=== PATIENT | male | born 1950 | race Two or more races ===

== ENCOUNTER 2023-04-12 08:54 | Outpatient (REF) | payer MEDICARE, SELFPAY | END 2023-04-12 08:55 | disposition home or self-care (01) | LOC: HO.HOSX 08:54 | PROVIDERS: Visit Provider Orthopaedic Surgery | DX: M25.512 Pain in left shoulder (principal) | CPT/HCPCS: 99212 ==

== ENCOUNTER 2023-04-12 10:53 | Outpatient (AMB) | payer MEDICARE, SELFPAY ==
[2023-04-12 11:11] VITALS: BMI 23.8
--- NOTE | 2023-04-12 11:11 | MHC.OFFVIS ---
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 Dupont for his left shoulder. Patient reports pain has been present since August 2022, he received a cortisone injection in September that provided relief until he felt a popping. His pain comes with movement of arm and is limited on ROM, states unable to reach arm behind him. His pain at times will radiate down to bicep area. The patient did see Dr. Stone Esposito at [facility]. The patient is not sure that he could tolerate shoulder replacement surgery because he is not able to take opioid pain medicines. He has been using a red light therapy which has given him fairly good relief. He has also returned to riding his bike Allergies tamsulosin [Flomax] Allergy (Unknown, Verified 04/12/23 11:13) Unknown statins Adverse Reaction (Unknown, Uncoded 05/25/19 00:00) myalgia Medication List - Last Reconciled 04/12/23 by Riaz Dupont MD alfuzosin ER 10 mg PO DAILY clonazepam 1 mg PO DAILY PRN levothyroxine (Unithroid) 100 mcg PO DAILY FORMERLY [facility], [facility] Medical History (Updated 04/12/23 @ 11:14 by SINA Fowler) History of hypothyroidism Surgical History (Updated 04/12/23 @ 11:14 by SINA Fowler) History of back surgery History of total right knee replacement Social History (Updated 04/12/23 @ 11:15 by SINA Fowler) Patient Tobacco Use Status: Never used Tobacco Current occupational status: retired Current occupation: right hand dominant Physical Exam Vital Signs: BMI result Body Mass Index 23.8 Const Other: Well-nourished well-developed very friendly male awake alert and oriented x3 in no acute distress Extrem Other: Bilateral upper extremity examination shows good capillary refill, no skin lesions noted, normal sensation light touch Left shoulder examination shows slightly decreased range of motion when compared to his right shoulder, 5/5 strength with supraspinatus testing, positive impingement signs, mild tenderness over his acromioclavicular joint, no instability Assessment & Plan Assessment & Plan (1) Left shoulder pain: Code(s): M25.512 - Pain in left shoulder Plan Mr. Evans presents with left shoulder pain due to tendinitis and degenerative joint disease. I had a lengthy discussion with the patient regarding the treatment options. At this point his symptoms are improving with use of the red light therapy. We will hold off on any no other cortisone injection. He will also continue with his range of motion exercises to prevent stiffness. He will follow up with me on an as-needed basis should his symptoms not plateau at an unacceptable level over the next few months. Feel free to call me at any time should questions regarding his orthopedic management arise. I spent 22 minutes in reviewing the patient's records and imaging studies, seeing the patient and documenting in the medical record. Orders: Orders XR shoulder LT min 2V Today M25.512 - Pain in left shoulder Coding Level of Care Code Est Pt Level 2 (14545) Diagnoses Left shoulder pain M25.512
== END 2023-04-12 11:52 | disposition home or self-care (01) ==
PROVIDERS: PCP Internal Medicine; Visit Provider Orthopaedic Surgery
DX: M25.512 Pain in left shoulder (principal)
CPT/HCPCS: 99212

== ENCOUNTER 2023-12-23 12:45 | Outpatient (AMB) | payer MEDICARE, SELFPAY ==
--- NOTE | 2023-12-23 13:06 | A.OFFVIS_ITS ---
Intake Intake Visit Reasons: BPH, peyronies Intake Note: NEW Patient presents today to established treatment for BPH & Peyronies: Meds- Finasteride & Alfuzosin Allergies to Antibiotic- No Known Allergies Blood Thinner- None Post Void Residual: 39 mL [facility] Required: No Accompanied by: Self / Same As Patient Allergies tamsulosin [Flomax] Allergy (Unknown, Verified 12/23/23 13:23) Unknown statins Adverse Reaction (Unknown, Uncoded 12/23/23 13:23) myalgia Medication List - Last Reconciled 12/23/23 by Nissa Adams MD alfuzosin ER 10 mg PO DAILY amoxicillin 2,000 mg PO ONCE PRN clonazepam 1 mg PO DAILY PRN finasteride 5 mg PO DAILY levothyroxine 100 mcg PO DAILY pentoxifylline ER 400 mg PO BID 90 days sertraline (Zoloft) 100 mg PO DAILY vitamin E (dl, acetate) 450 mg PO DAILY 90 days HPI HPI Comments History of Present Illness Details Ruben is a 73-year-old male who is here as a new patient evaluation. He complains of weak urinary stream and having to push to empty while urinating. He also complains that when he has an erection in the lower portion of the shaft there is an area that is flaccid. He does not describe a specific curvature of the penis. He is up about 2-3 times at night to urinate. He states he has been following with Urology for about 25 years. He has seen different urologists in the past. The most recent urologist is now [address] to and he has seeking a new urologist for his care. He has had several evaluations for his urinary symptoms in the past. Is currently on alfuzosin 10 mg daily and finasteride 5 mg daily. CoMorbidity - OCD, anxiety, back surgery. Urinalysis-leukocytes negative blood negative. Bladder scan PVR 39 mL. Prostate Exam: Smooth mild to moderately enlarged I have discussed further evaluation with office cystoscopy. I have discussed treatment options to include sacral neuromodulation with Test stim to be done initially to see if this may help with better voiding function. I will start him on vitamin E and pentoxifylline. Will continue PSA screening. [facility] Medical History BPH (benign prostatic hyperplasia) Psychosexual disorder Urinary retention Pain in both testicles Peyronie disease Lower urinary tract symptoms Nephrolithiasis Enlarged prostate with lower urinary tract symptoms (LUTS) History of hypothyroidism Surgical History History of total right knee replacement History of back surgery Family History Father No problems noted. Mother No problems noted. Social History Patient Tobacco Use Status: Never used Tobacco Current occupational status: retired Current occupation: right hand dominant Review of Systems Const All systems reviewed & are unremarkable except as noted in HPI and below Reports no additional complaints Eyes Reports no additional complaints ENT Reports no additional complaints Card Reports no additional complaints Resp Reports no additional complaints GI Reports no additional complaints Reports as per HPI Musc Reports no additional complaints Skin/Breast Reports system reviewed and no additional complaints, except as documented Neuro Reports no additional complaints Psych Reports no additional complaints Endo Reports no additional complaints Dante/Lymph Reports no additional complaints Aller/Immun Reports no additional complaints Physical Exam Const General: healthy appearing, no acute distress and well developed Orientation/consciousness: patient oriented x3 HEENT Head: Yes normocephalic and Yes atraumatic Eyes Conjunctivae: conjunctivae normal Neck Neck: Yes normal visual inspection Chest Chest palpation & inspection: normal inspection of the chest Resp Effort & Inspection: normal respiratory effort Cardio Jugular venous distension: no JVD GI Inspection: Yes normal to inspection Palpation (GI): Soft to palpation Other: Prostate Exam: Smooth mild to moderately enlarged Penis: normal penis Scrotum: scrotum normal Skin General skin exam: no rashes or lesions noted Neuro General: patient oriented x3 Extrem General: No pedal edema Psych Appearance: grossly normal Affect: normal affect Office Procedures Post Void Residual Post Residual Void Post Void Residual (PVR): 39 [id number] Void Residual by ultrasound Results AMB Urinalysis, Automated UA Leukoctes 0 Rashard/uL Last Edit by SINA Rachel on 12/23/23 13:39 UA Nitrite Negative Last Edit by Gunjan Cheema [facility] on 12/23/23 13:39 UA Urobilinogen 0.2 mg/dL Last Edit by Gunjan Cheema Dona on 12/23/23 13:3 9 UA Protein 15 mg/dL Last Edit by Gunjan Cheema [facility] on 12/23/23 13:39 UA pH 5.5 Last Edit by Gunjan Cheema [facility] on 12/23/23 13:39 UA Blood 0 Charles/uL Last Edit by Gunjan Cheema [facility] on 12/23/23 13:39 UA Specific [place] 1.020 Last Edit by Gunjan Cheema [facility] on 12/23/23 13: 39 UA Ketone Negative Last Edit by Gunjan Cheema Dona on 12/23/23 13:39 UA Bilirubin 0 mg/dL Last Edit by Gunjan Cheema [facility] on 12/23/23 13:39 UA Glucose 0 mg/dL Last Edit by Gunjan Cheema [facility] on 12/23/23 13:39 Results Reviewed Results Reviewed: Laboratory Last Values Urine pH (Auto) 5.5 12/23/23 13:35 Specific [place] (Auto) 1.020 12/23/23 13:35 Urine Protein (Auto) 15 mg/dL 12/23/23 13:35 Glucose (UA)(Auto) 0 mg/dL 12/23/23 13:35 Urine Ketones (Auto) Negative 12/23/23 13:35 Urine Blood (Auto) 0 Charles/uL 12/23/23 13:35 Urine Nitrite (Auto) Negative 12/23/23 13:35 Urine Bilirubin (Auto) 0 mg/dL 12/23/23 13:35 Urine Urobilinogen (Auto) 0.2 mg/dL 12/23/23 13:35 Leukocyte Esterase (Auto) 0 Rashard/uL 12/23/23 13:35 Assessment & Plan Assessment & Plan (1) Erectile dysfunction: Code(s): N52.9 - Male erectile dysfunction, unspecified (2) Voiding dysfunction: Code(s): N39.8 - Other specified disorders of urinary system (3) BPH loc w urin obs/LUTS: Code(s): N40.1 - Benign prostatic hyperplasia with lower urinary tract symptoms Plan I have discussed further evaluation with office cystoscopy. I have discussed treatment options to include sacral neuromodulation with Test stim to be done initially to see if this may help with better voiding function. I will start him on vitamin E and pentoxifylline. Will continue PSA screening. Orders: Orders AMB Post Void Residual by ultrasound Today Nissa Adams MD N39.8 - Other specified disorders of urinary system AMB Urinalysis Automated Today Nissa Adams MD Z13.9 - Encounter for screening, unspecified Medications: New pentoxifylline ER 400 mg PO BID 180 tabs 1RF 90 days Nissa Adams MD vitamin E (dl, acetate) 450 mg PO DAILY 90 caps 1RF 90 days Nissa Adams MD finasteride 5 mg PO DAILY 90 tabs 1RF Nissa Adams MD alfuzosin ER administer after the same meal each day 10 mg PO DAILY 90 tabs 1RF Nissa Adams MD Changed From amoxicillin Take four tabs (2,000 mg) one hour before any dental work 2,000 mg (4 x 500 mg) PO ONCE 20 tabs 3RF To amoxicillin Take four tabs (2,000 mg) one hour before any dental work 2,000 mg PO ONCE PRN Riaz Dupont MD Patient Instructions: The patient had an opportunity to ask questions regarding treatment plan. All questions were answered. Imaging, Laboratory studies and physical exam results were discussed and reviewed in detail. No major barriers to understanding were identified. The patient expressed understanding and agreement with the above treatment plan. The patient is aware they should contact our office by phone for worsening of their current condition or the appearance of new symptoms. Compliance is encouraged with any medications and followup testing that is ordered. It is a privilege to be allowed the opportunity to participate in the urologic care of your patient. If you have any questions or concerns regarding treatment for the above conditions please do not hesitate to contact me. The office telephone contact is [phone]. This note is constructed in part using voice recognition software. While every effort has been made to ensure accuracy wire drawer errors may have been included. Yours sincerely, Nissa Adams MD Coding Level of Care Code New Pt Level 4 (17036) Diagnoses Erectile dysfunction N52.9 Voiding dysfunction N39.8 BPH loc w urin obs/LUTS N40.1 CPT Codes Post Residual Void - PVR CPT Code: 75188-Farz Void Residual by ultrasound ([id number])
== END 2023-12-23 13:59 | disposition home or self-care (01) ==
PROVIDERS: PCP Internal Medicine; Visit Provider Urology
DX: N52.9 Male erectile dysfunction, unspecified (principal); N39.8 Other specified disorders of urinary system; N40.1 Benign prostatic hyperplasia with lower urinary tract symptoms; Z13.9 Encounter for screening, unspecified
CPT/HCPCS: 99204

== ENCOUNTER → 2023-12-23 12:45 | Outpatient (BNVA) | payer MEDICARE, SELFPAY | PROVIDERS: PCP Internal Medicine; Visit Provider Urology | DX: N40.1 Benign prostatic hyperplasia with lower urinary tract symptoms (principal); R39.12 Poor urinary stream; N52.9 Male erectile dysfunction, unspecified; N39.8 Other specified disorders of urinary system | CPT/HCPCS: 51798; 81003; 99202 ==

== ENCOUNTER 2024-01-30 13:25 | Outpatient (AMB) | payer MEDICARE, SELFPAY ==
--- NOTE | 2024-01-30 13:28 | A.OFFVIS_ITS ---
Intake Visit Reasons: cysto Intake Note: Patient presents today for a CYSTOSCOPY Procedure: Meds: None Allergies to Antibiotic: No Known Allergies Blood Thinner: None Urinalysis test clear for Cysto? Disposable Uro-G HD Cystoscope Cannula: Lot: [id number] Exp: 09/13/2026 Order Schedule Clerk Required: No Accompanied by: Self / Same As Patient Allergies tamsulosin [Flomax] Allergy (Unknown, Verified 01/30/24 13:28) Unknown statins Adverse Reaction (Unknown, Uncoded 01/30/24 13:28) myalgia Medication List - Last Reconciled 01/30/24 by Nissa Adams MD amoxicillin 2,000 mg PO ONCE PRN clonazepam 1 mg PO DAILY PRN finasteride 5 mg PO DAILY levothyroxine 100 mcg PO DAILY pentoxifylline ER 400 mg PO BID 90 days sertraline (Zoloft) 100 mg PO DAILY silodosin (Rapaflo) 8 mg PO DAILY vitamin E (dl, acetate) 450 mg PO DAILY 90 days HPI Comments Details: 01/30/2024--Ruben is here for office cystoscopy. He was initially evaluated on 12/23/23 with complaints of weak urinary stream and hesitancy/straining, he is on alfuzosin and Proscar. He also had symptoms of urgency, other treatment options including sacral neuromodulation was discussed. He states that he has had urodynamics in the past and was unable to urinate with the catheter in place. He described curvature of penis. I prescribed vitamin E and pentoxifylline. Cystoscopy findings: [id number] trabeculations, evidence of prior bladder biopsy, regrowth of the prostate which is obstructive. I discussed treatment options to remove prostate tissue including GreenLight laser TURP may improve urinary symptoms of straining. We will trial Rapaflo to replace alfuzosin. The patient states he had a reaction to tamsulosin in the past with side effects of throat swelling. Review of chart: 12/23/2023--Ruben is a 73-year-old male who is here as a new patient evaluation. He complains of weak urinary stream and having to push to empty while urinating. He also complains that when he has an erection in the lower portion of the shaft there is an area that is flaccid. He does not describe a specific curvature of the penis. He is up about 2-3 times at night to urinate. He states he has been following with Urology for about 25 years. He has seen different urologists in the past. The most recent urologist is now [address] to and he has seeking a new urologist for his care. He has had several evaluations for his urinary symptoms in the past. Is currently on alfuzosin 10 mg daily and finasteride 5 mg daily. CoMorbidity - OCD, anxiety, back surgery. Urinalysis-leukocytes negative blood negative. Bladder scan PVR 39 mL. Prostate Exam: Smooth mild to moderately enlarged I have discussed further evaluation with office cystoscopy. I have discussed treatment options to include sacral neuromodulation with Test stim to be done initially to see if this may help with better voiding function. I will start him on vitamin E and pentoxifylline. Will continue PSA screening. [facility] Medical History (Updated 01/30/24 @ 13:59 by Nissa Adams MD) BPH (benign prostatic hyperplasia) Psychosexual disorder Urinary retention Pain in both testicles Peyronie disease Lower urinary tract symptoms Nephrolithiasis Enlarged prostate with lower urinary tract symptoms (LUTS) History of hypothyroidism Surgical History History of total right knee replacement History of back surgery Family History Father No problems noted. Mother No problems noted. Social History Patient Tobacco Use Status: Never used Tobacco Current occupational status: retired Current occupation: right hand dominant Review of Systems Const All systems reviewed & are unremarkable except as noted in HPI and below Reports no additional complaints Eyes Reports no additional complaints ENT Reports no additional complaints Card Reports no additional complaints Resp Reports no additional complaints GI Reports no additional complaints Reports as per HPI Musc Reports no additional complaints Skin/Breast Reports system reviewed and no additional complaints, except as documented Neuro Reports no additional complaints Psych Reports no additional complaints Endo Reports no additional complaints Dante/Lymph Reports no additional complaints Aller/Immun Reports no additional complaints Office Procedures Cystoscopy Consent Discussed risk and benefit or proposed procedure with the patient. Information consent for procedure given to the patient. Discussed technical aspects, risks, benefits and alternatives in full. Addressed all of the patient's questions and concerns regarding the procedure. The patient demonstrated knowledge and understanding. They wish to proceed with this procedure. Preparation The patient was prepped in the usual manner. A cryogenics repairer was present and in the room. Genitalia was prepped with betadine solution in a sterile manner. Lidocaine Jelly 2% was placed into the urethra and 16Fr flexible Olympus cystoscope was inserted into the meatus after adequate lubrication. Procedure Time out per protocol performed. Bladder Inspection Bladder Inspection: The bladder was inspected in its entirety with utilization retroflexion displaying: Tumor(s): None visualized Trabeculation: Mild to moderate Mucosal Erthema: NA, scar tissue consistent with prior bladder biopsy. Orifices: normal shape and position Urethra: normal Cystoscopy findings: prostatic urethra regrowth of prostate tissue meds obstru ctive, bulbous urethra, no suspicious bladder lesions visualized [id number] DISPOSABLE SCOPE URO-G FLEXIBLE SCOPE Procedure code (CPT) selection complete Office Meds lidocaine HCl 2 % mucosal jelly in applicator Performing Provider: Nissa Adams MD [facility] Administered by: Nissa Adams MD on 01/30/24 13:58 Dose Route Admin Location Dispensed Lot Number Expiration Date ND Technical Support Intern 10 mL intra-urethral 20 mL naproxen 500 mg tablet Performing Provider: Nissa Adams MD Performing Location: [facility] Administered by: Nissa Adams MD on 01/30/24 13:58 Dose Route Admin Location Dispensed Lot Number Expiration Date ND Technical Support Intern 500 mg PO 1 tab ciprofloxacin HCl 500 mg tablet Performing Provider: Nissa Adams MD Performing Location: [facility] Administered by: Nissa Adams MD on 01/30/24 13:58 Dose Route Admin Location Dispensed Lot Number Expiration Date NDC Technical Support Intern 500 mg PO 1 tab Results AMB Urinalysis, Automated UA Leukoctes 0 Rashard/uL Last Edit by SINA Rachel on 01/30/24 14:02 UA Nitrite Negative Last Edit by Gunjan Cheema Dona on 01/30/24 14:02 UA Urobilinogen 0.2 mg/dL Last Edit by Gunjan Cheema Dona on 01/30/24 14:0 2 UA Protein 15 mg/dL Last Edit by Gunjan Cheema Dona on 01/30/24 14:02 UA pH 6.0 Last Edit by Gunjan Cheema Dona on 01/30/24 14:02 UA Blood 0 Charles/uL Last Edit by Gunjan Cheema Dona on 01/30/24 14:02 UA Specific [place] 1.015 Last Edit by Gunjan Cheema Dona on 01/30/24 14: 02 UA Ketone Negative Last Edit by Gunjan Cheema Dona on 01/30/24 14:02 UA Bilirubin 0 mg/dL Last Edit by Gunjan Cheema Dona on 01/30/24 14:02 UA Glucose 0 mg/dL Last Edit by Gunjan Cheema Dona on 01/30/24 14:02 Results Reviewed Results Reviewed: Laboratory Last Values Urine pH (Auto) 6.0 01/30/24 13:44 Specific [place] (Auto) 1.015 01/30/24 13:44 Urine Protein (Auto) 15 mg/dL 01/30/24 13:44 Glucose (UA)(Auto) 0 mg/dL 01/30/24 13:44 Urine Ketones (Auto) Negative 01/30/24 13:44 Urine Blood (Auto) 0 Charles/uL 01/30/24 13:44 Urine Nitrite (Auto) Negative 01/30/24 13:44 Urine Bilirubin (Auto) 0 mg/dL 01/30/24 13:44 Urine Urobilinogen (Auto) 0.2 mg/dL 01/30/24 13:44 Leukocyte Esterase (Auto) 0 Rashard/uL 01/30/24 13:44 Assessment & Plan Assessment & Plan (1) Erectile dysfunction: Code(s): N52.9 - Male erectile dysfunction, unspecified Category: Medical (2) Voiding dysfunction: Code(s): N39.8 - Other specified disorders of urinary system Category: Medical (3) BPH loc w urin obs/LUTS: Code(s): N40.1 - Benign prostatic hyperplasia with lower urinary tract symptoms Category: Medical (4) Peyronie disease: Code(s): N48.6 - Induration penis plastica Category: Medical Plan Continue vitamin E and pentoxifylline. Trial of Rapaflo to replace alfuzosin, patient has side effects to tamsulosin PSA screening. Follow-up in 3-4 months Orders: Orders AMB Urinalysis Automated Today Z13.9 - Encounter for screening, unspecified AMB Cystoscopy Today N40.1 - Benign prostatic hyperplasia with lower urinary tract symptoms Medications: New silodosin (Rapaflo) must administer with a meal/food 8 mg PO DAILY 30 caps 1RF Patient Instructions: The patient had an opportunity to ask questions regarding treatment plan. The patient expressed understanding and agreement with the above treatment plan. The patient is aware they should contact our office by phone for worsening of their current condition or the appearance of new symptoms. Compliance is encouraged with any medications and followup testing that is ordered. It is a privilege to be allowed the opportunity to participate in the urologic care of your patient. If you have any questions or concerns regarding treatment for the above conditions please do not hesitate to contact me. The office telephone contact is [phone]. This note is constructed in part using voice recognition software. While every effort has been made to ensure accuracy edger liner errors may have been included. Yours sincerely, Nissa Adams MD Coding Level of Care Code Est Pt Level 4 (27065) Diagnoses Erectile dysfunction N52.9 Voiding dysfunction N39.8 BPH loc w urin obs/LUTS N40.1 Peyronie disease N48.6 CPT Codes Cystoscopy - CPT: 91123-Ttiovatnrf ([id number])
== END 2024-01-30 14:25 | disposition home or self-care (01) ==
PROVIDERS: PCP Internal Medicine; Visit Provider Urology
DX: N40.1 Benign prostatic hyperplasia with lower urinary tract symptoms (principal); N39.8 Other specified disorders of urinary system; N52.9 Male erectile dysfunction, unspecified; N48.6 Induration penis plastica; Z13.9 Encounter for screening, unspecified
CPT/HCPCS: 52000; 99214

== ENCOUNTER → 2024-01-30 13:25 | Outpatient (BNVA) | payer MEDICARE, SELFPAY | PROVIDERS: PCP Internal Medicine; Visit Provider Urology | DX: N39.8 Other specified disorders of urinary system (principal); N40.1 Benign prostatic hyperplasia with lower urinary tract symptoms; N13.8 Other obstructive and reflux uropathy; N48.6 Induration penis plastica; N52.9 Male erectile dysfunction, unspecified | CPT/HCPCS: 52000; 81003; 99212 ==

== ENCOUNTER 2024-05-02 12:51 | Outpatient (AMB) | payer MEDICARE, SELFPAY ==
--- NOTE | 2024-05-02 13:03 | A.OFFVIS_ITS ---
Intake Visit Reasons: 3m/PSA Intake Note: Pt presents to the office today for a 3 month follow up/PSA. PVR:37mL Allergies tamsulosin [Flomax] Allergy (Unknown, Verified 05/02/24 13:05) Unknown statins Adverse Reaction (Unknown, Uncoded 05/02/24 13:05) myalgia HPI Comments Details: 05/02/24--Ruben is here for follow-up. I have reviewed PSA results, 03/14/24--1.1 ng/mL. The patient is prescribed pentoxifylline and is taking arjw-jwc-szjyhhs vitamin-E for Peyronie's. He continues to take the alfuzosin and finasteride. The Rapaflo was not covered by his insurance. Bladder scan PVR is 57 mL. Will continue medications and monitor PSA. Follow-up in 6 months. Review of chart: 01/30/2024--Ruben is here for office cystoscopy. He was initially evaluated on 12/23/23 with complaints of weak urinary stream and hesitancy/straining, he is on alfuzosin and Proscar. He also had symptoms of urgency, other treatment options including sacral neuromodulation was discussed. He states that he has had urodynamics in the past and was unable to urinate with the catheter in place. He described curvature of penis. I prescribed vitamin E and pentoxifylline. Cystoscopy findings: Djcr-pe-lutkqdni trabeculations, evidence of prior bladder biopsy, regrowth of the prostate which is obstructive. I discussed treatment options to remove prostate tissue including GreenLight laser TURP may improve urinary symptoms of straining. We will trial Rapaflo to replace alfuzosin. The patient states he had a reaction to tamsulosin in the past with side effects of throat swelling. 12/23/2023--Ruben is a 73-year-old male who is here as a new patient evaluation. He complains of weak urinary stream and having to push to empty while urinating. He also complains that when he has an erection in the lower portion of the shaft there is an area that is flaccid. He does not describe a specific curvature of the penis. He is up about 2-3 times at night to urinate. He states he has been following with Urology for about 25 years. He has seen different urologists in the past. The most recent urologist is now [address] to and he has seeking a new urologist for his care. He has had several evaluations for his urinary symptoms in the past. Is currently on alfuzosin 10 mg daily and finasteride 5 mg daily. CoMorbidity - OCD, anxiety, back surgery. Urinalysis-leukocytes negative blood negative. Bladder scan PVR 39 mL. Prostate Exam: Smooth mild to moderately enlarged I have discussed further evaluation with office cystoscopy. I have discussed treatment options to include sacral neuromodulation with Test stim to be done initially to see if this may help with better voiding function. I will start him on vitamin E and pentoxifylline. Will continue PSA screening. [facility] Medical History BPH (benign prostatic hyperplasia) Psychosexual disorder Urinary retention Pain in both testicles Peyronie disease Lower urinary tract symptoms Nephrolithiasis Enlarged prostate with lower urinary tract symptoms (LUTS) History of hypothyroidism Surgical History History of total right knee replacement History of back surgery Family History Father No problems noted. Mother No problems noted. Social History Patient Tobacco Use Status: Never used Tobacco Current occupational status: retired Current occupation: right hand dominant Review of Systems Const All systems reviewed & are unremarkable except as noted in HPI and below Reports no additional complaints Eyes Reports no additional complaints ENT Reports no additional complaints Card Reports no additional complaints Resp Reports no additional complaints GI Reports no additional complaints Reports as per HPI Musc Reports no additional complaints Skin/Breast Reports system reviewed and no additional complaints, except as documented Neuro Reports no additional complaints Psych Reports no additional complaints Endo Reports no additional complaints Dante/Lymph Reports no additional complaints Aller/Immun Reports no additional complaints Office Procedures Post Void Residual Post Residual Void Post Void Residual (PVR): 37 [id number] Void Residual by ultrasound Results AMB Urinalysis, Automated UA Leukoctes 0 Rashard/uL Last Edit by Ailyn Astudillo CMA on 05/02/24 13:14 UA Nitrite Negative Last Edit by Ailyn Astudillo CMA on 05/02/24 13:14 UA Urobilinogen 0.2 mg/dL Last Edit by Ailyn Astudillo CMA on 05/02/24 13:14 UA Protein 15 mg/dL Last Edit by Ailyn Astudillo CMA on 05/02/24 13:14 UA pH 6.0 Last Edit by Ailyn Astudillo CMA on 05/02/24 13:14 UA Blood 0 Charles/uL Last Edit by Ailyn Astudillo CMA on 05/02/24 13:14 UA Specific Merna 1.020 Last Edit by Ailyn Astudillo CMA on 05/02/24 13:14 UA Ketone Negative Last Edit by Ailyn Astudillo CMA on 05/02/24 13:14 UA Bilirubin 0 mg/dL Last Edit by Ailyn Astudillo CMA on 05/02/24 13:14 UA Glucose 0 mg/dL Last Edit by Ailyn Astudillo CMA on 05/02/24 13:14 Results Reviewed Results Reviewed: Laboratory Last Values Urine pH (Auto) 6.0 05/02/24 13:08 Specific Merna (Auto) 1.020 05/02/24 13:08 Urine Protein (Auto) 15 mg/dL 05/02/24 13:08 Glucose (UA)(Auto) 0 mg/dL 05/02/24 13:08 Urine Ketones (Auto) Negative 05/02/24 13:08 Urine Blood (Auto) 0 Charles/uL 05/02/24 13:08 Urine Nitrite (Auto) Negative 05/02/24 13:08 Urine Bilirubin (Auto) 0 mg/dL 05/02/24 13:08 Urine Urobilinogen (Auto) 0.2 mg/dL 05/02/24 13:08 Leukocyte Esterase (Auto) 0 Rashard/uL 05/02/24 13:08 Assessment & Plan Assessment & Plan (1) Erectile dysfunction: Code(s): N52.9 - Male erectile dysfunction, unspecified Category: Medical (2) Voiding dysfunction: Code(s): N39.8 - Other specified disorders of urinary system Category: Medical (3) BPH loc w urin obs/LUTS: Code(s): N40.1 - Benign prostatic hyperplasia with lower urinary tract symptoms Category: Medical (4) Peyronie disease: Code(s): N48.6 - Induration penis plastica Category: Medical Plan The patient is prescribed pentoxifylline and is taking xdhz-xse-bhihbit vitamin-E for Peyronie's. He continues to take the alfuzosin and finasteride. The Rapaflo was not covered by his insurance. Bladder scan PVR is 57 mL. Will continue medications and monitor PSA. Follow-up in 6 months. Orders: Orders AMB Post Void Residual by ultrasound Today N39.8 - Other specified disorders of urinary system PSA,Total (Free>4and<10) 5 Months N40.1 - Benign prostatic hyperplasia with lower urinary tract symptoms AMB Urinalysis Automated Today N39.8 - Other specified disorders of urinary system Coding Level of Care Code Est Pt Level 4 (97643) Diagnoses Erectile dysfunction N52.9 Voiding dysfunction N39.8 BPH loc w urin obs/LUTS N40.1 Peyronie disease N48.6 CPT Codes Post Residual Void - PVR CPT Code: 23052-Rjtw Void Residual by ultrasound ([id number])
== END 2024-05-02 13:44 | disposition home or self-care (01) ==
PROVIDERS: PCP Internal Medicine; Visit Provider Urology
DX: N52.9 Male erectile dysfunction, unspecified (principal); N39.8 Other specified disorders of urinary system; N40.1 Benign prostatic hyperplasia with lower urinary tract symptoms; N48.6 Induration penis plastica
CPT/HCPCS: 99214

== ENCOUNTER → 2024-05-02 12:51 | Outpatient (BNVA) | payer MEDICARE, SELFPAY | PROVIDERS: PCP Internal Medicine; Visit Provider Urology | DX: N40.1 Benign prostatic hyperplasia with lower urinary tract symptoms (principal); N13.8 Other obstructive and reflux uropathy; N48.6 Induration penis plastica; N52.9 Male erectile dysfunction, unspecified; N39.8 Other specified disorders of urinary system | CPT/HCPCS: 51798; 81003; 99212 ==

== ENCOUNTER 2024-11-20 12:28 | Outpatient (AMB) | payer MEDICARE, SELFPAY ==
[2024-11-20 12:48] VITALS: BMI 23.8
--- NOTE | 2024-11-20 12:48 | A.OFFVIS_ITS ---
Vital Signs 11/20/24 12:48 11/20/24 13:05 Height 5 ft 5 in 5 ft 5 in Weight 143 lb 143 lb BMI 23.8 23.8 Intake Visit Reasons: Bilateral Knee Pain, Right hip pain Intake Note: Ruben is a 74 year old male who presents with complaints of intermittent discomfort along the lateral aspect of his right hip and right knee after falling on the ice. He also reports intermittent discomfort in his left knee. He did undergo right total knee replacement surgery several years ago. He has had cortisone injections given into his left knee which gave him minimal relief. He has also had viscosupplementation injections which gave him fairly good relief. He wishes to hold off on left total knee replacement surgery for as long as possible. Has done physical therapy exercises which aggravated his pain. He has also tried Tylenol and anti-inflammatory medicines which gave him minimal relief. At this point his left knee pain is interfering with his activities of daily living and his ability to sleep well through the night. Allergies tamsulosin [Flomax] Allergy (Unknown, Verified 05/02/24 13:05) Unknown statins Adverse Reaction (Unknown, Uncoded 05/02/24 13:05) myalgia Medication List - Last Reconciled 11/20/24 by Riaz Dupont MD alfuzosin ER 10 mg PO DAILY amoxicillin 2,000 mg PO ONCE PRN clonazepam 1 mg PO DAILY PRN finasteride 5 mg PO DAILY levothyroxine 100 mcg PO DAILY methylprednisolone (Medrol (Yoan)) PO PER PKG DIR pentoxifylline ER 400 mg PO BID 90 days vitamin E (dl, acetate) 450 mg PO DAILY 90 days [facility] Medical History BPH (benign prostatic hyperplasia) Psychosexual disorder Urinary retention Pain in both testicles Peyronie disease Lower urinary tract symptoms Nephrolithiasis Enlarged prostate with lower urinary tract symptoms (LUTS) History of hypothyroidism Surgical History History of total right knee replacement History of back surgery Family History Father No problems noted. Mother No problems noted. Social History Patient Tobacco Use Status: Never used Tobacco Current occupational status: retired Current occupation: right hand dominant Physical Exam Vital Signs: BMI result Body Mass Index 23.8 Const Other: Well-nourished well-developed very friendly male awake alert and oriented x3 in no acute distress Extrem Other: Bilateral lower extremity examination shows good capillary refill, no skin lesions noted, normal sensation light touch Right hip examination shows full range of motion when compared to his left hip, tenderness over his bursa, no overlying skin lesions Right knee examination shows that the surgical incision is well healed, no erythema, full active extension and flexion to 120 degrees, his patella tracks well Left knee examination shows a minimal effusion, palpable crepitus with range of motion, pain with range of motion, no instability Results Reviewed Results Reviewed: X-rays of the patient's right hip show mild diffuse joint space narrowing, no acute bony abnormalities X-rays of the patient's right knee show a total knee arthroplasty in good position with no signs of loosening, no acute bony abnormalities X-rays of the patient's left knee show moderate joint space narrowing, subchondral sclerosis, no acute bony abnormalities Assessment & Plan Assessment & Plan (1) Right hip pain: Code(s): M25.551 - Pain in right hip Category: Medical (2) Osteoarthritis of left knee: Code(s): M17.12 - Unilateral primary osteoarthritis, left knee Category: Medical Plan Mr. Evans presents with left knee pain due to osteoarthritis as well as right hip and knee discomfort most likely due to iliotibial band syndrome. I had a lengthy discussion with the patient regarding the treatment options. He wishes to hold off on left total knee replacement surgery for as long as possible. I agree with this plan. He has not gotten good relief from cortisone injections in the past. Thus, I will see whether or not his insurance company will cover a viscosupplementation injection. I will see him back once the injection is available. Feel free to call me at any time should questions regarding his orthopedic management arise. I spent 21 minutes in reviewing the patient's records and imaging studies, seeing the patient and documenting in the medical record. Orders: Orders XR knee LT 3V Today M25.562 - Pain in left knee XR knee RT 3V Today M25.561 - Pain in right knee XR hip RT min 2V Today M25.551 - Pain in right hip Medications: New methylprednisolone (Medrol (Yoan)) PO PER PKG DIR 21 ea 0RF Coding Level of Care Code Est Pt Level 3 (53639) Complex EM visit Add On G2211 Diagnoses Right hip pain M25.551 Osteoarthritis of left knee M17.12
[2024-11-20 13:05] VITALS: BMI 23.8
--- OUTSIDE RECORDS SUMMARY | 2024-11-20 15:02 | XMS_ITS | Data Portability ---
Author Organization [place] [facility] [place] Address [address] [place] [address] Care Team Providers Care Piano Tuner Name Role Phone DESIREE MILLER Primary Care Provider [phone] Assessment Encounter Date Assessment Date Assessment LastModified by Organization Details LastModified Time 12/07/2022 12/07/2022 Mr. Evans presen ts with left shoulder pain due to impingement syndrome, acromioclavicular joint arthritis and rotator cuff tendinosis versus a small tear. I had a lengthy discussion with the patient regarding the treatment options. At this point the patient's symptoms are tolerable to him. Activity modifications were discussed at length with the patient. He will follow-up with me on an as-needed basis should his symptoms worsen in any way. jamila Not available 12/07/2022 15:18:11 Plan of Treatment Reminders Order Date Submit Date Provider Last Modified By Organization Details Last Modified Time Details Appointments None record ed. Lab None record ed. Referral None record ed. Procedures None record ed. Surgeries None record ed. Imaging None record ed. Medication Orders None record ed. Patient TargetsNo targets recorded. Patient InstructionsNo instructions recorded. Reason for Referral None Reported. Problems Name Problem SNOMED Code Status Onset Date Resolution Date Notes Provider Name and Address Organization Details Recorded Time Impingement syndrome of left shoulder region 5823836087809 04 Active 2022 Riaz Dupont MD [address] [facility] [address], [place], [address] , [place] [facility] 15:16:39 Problem Notes None recorded. Procedures Surgical History Date Name Laterality Status Provider Name and Address Organization Details Recorded Time Total knee arthroplasty completed Yas Fam [facility] 12/07/2022 13:03:05 Shoulder Surgery completed Yasheather Fam [facility] 12/07/2022 13:03:11 Hernia Repair completed Yas Fam [facility] 12/07/2022 13:03:17 cholecystectomy completed Yas Fam [facility] 12/07/2022 13:03:25 operation on prostate completed [facility] 12/07/2022 13:03:43 v[facility]ctomy completed [facility] [place] [facility] 12/07/2022 13:03:53 Imaging Results None recorded. Procedure Notes None recorded. Medical Equipment None Reported. Allergies Allergen ID Allergen Name Allergen Category Reaction Reaction Severity Criticality Documentation Date Start Date Code Code System Note Provider Name and Address Organization Details Recorded Time 1006 Flomax medicatio n Not available Not available Not available 12/07/2022 29012 3 RxNorm Yas Fam null, [place] [facility] 13:01:45 1007 amoxicill in medicatio n Not available Not available Not available 12/07/2022 723 RxNorm Yas Fam null, [place] [facility] 13:01:53 1008 Augmentin medicatio n Not available Not available Not available 12/07/2022 27942 2 RxNorm Yas Fam null, [place] [facility] 13:01:59 1009 budesonid e medicatio n Not available Not available Not available 12/07/2022 42045 RxNorm Yas Fam null, [place] [facility] 13:02:07 1010 erythromy max medicatio n Not available Not available Not available 12/07/2022 4053 RxNorm Yas Fam null, [place] [facility] 13:02:15 1011 Non-stero idal anti-infl ammatory agent (product) medicatio n Not available Not available Not available 12/07/2022 67097 005 SNOMED Yas Sarwat null, [place] [facility] 13:02:21 1012 salicylat e medicatio n Not available Not available Not available 12/07/2022 9522 RxNorm Yas Fam null, [place] [facility] 13:02:33 1013 Substance with sulfonami de structure and antibacte rial mechanism of action (substanc e) medicatio n Not available Not available Not available 12/07/2022 94395 8003 SNOMED Yas Fam null, [place] [facility] 13:02:39 Medications Name Sig Start Date Stop Date Status Note LastModified by Organization Details LastModified Time carisoprodo l 350 mg tablet TAKE 1 TABLET BY MOUTH EVERY 12 HOURS NEEDED FOR SPASMS active Not Available Not Available No t Available prednisone 10 mg tablet TAKE 1 TABLET BY MOUTH FOUR TIMES DAILY FOR 3 DAYS THEN TAKE 1 TABLET BY MOUTH TWICE DAILY FOR 1 DAY THEN STOP. TAKE WITH FOOD 01/10 completed Not Available Not Available Not Available clindamycin HCl 300 mg capsule TAKE 2 CAPSULES BY MOUTH 1 HOUR BEFORE DENTAL APPOINTME NT active Not Available Not Available No t Available senna 8.6 mg tablet TAKE 2 TABLETS BY MOUTH DAILY active Not Available Not Available No t Available clonazepam 1 mg tablet TAKE 1 TABLET BY MOUTH THREE TIMES DAILY NEEDED active Not Available Not Available No t Available hydromorpho ne 2 mg tablet active Not Available Not Available Not Available Unithroid 100 mcg tablet TAKE 1 TABLET BY MOUTH EVERY DAY IN THE MORNING ON AN EMPTY STOMACH active Not Available Not Available No t Available methylpredn isolone 4 mg tablets in a dose pack FOLLOW PACKAGE DIRECTION S 01/10 completed Not Available Not Available Not Available alfuzosin ER 10 mg tablet,exte nded release 24 hr TAKE 1 TABLET BY MOUTH EVERY DAY active Not Available Not Available No t Available lidocaine 5 % topical ointment APPLY TOPICALLY TO THE AFFECTED AREA 3 TO 4 TIMES PER DAY NEEDED FOR PAIN active Not Available Not Available No t Available BinaxNOW COVID-19 Ag Self Test kit TEST DIRECTED TODAY 01/10 completed Not Available Not Available Not Available Vitals Date Recorded Body height Body mass index (BMI) Body weight Provider Name and Address Organization Details Last Updated DateTime 12/07/2022 165.1 cm 23.3 kg/m2 43360.[address] [place] [facility] 12/07/2022 13:07:57 Social History None recorded. Functional Status None recorded. Mental Status None recorded. Family History Nothing Reported. Medical History Condition Response Heart Disease Y Thyroid Problems Y Past Encounters Encounter ID Performer Location Encounter Start Date Encounter Closed Date Diagnosis/Indication Diagnosis SNOMED-CT Code Diagnosis ICD10 Code Diagnosis Note [id number] MD ARETHA Baptiste [facility] [address] [facility] [address] [place] [address] 12/07/2022 12:57:12 12/07/2022 13:26:06 Impingement syndrome of left shoulder region [id number] 19728 M75.42 [id number] MD ARETHA Singh [facility] [address] [facility] [address] [place] [address] 01/10/2023 12:54:42 01/12/2023 09:49:35 Aftercare [id number] Z51.89 Health Concerns Section Related Observation LastModified by Organization Detai ls LastModified Time None Recorded Concern Status LastModified by Organization Details LastModified Time None Recorded Advance Directives Directive None Recorded Payers Encounter Date Sequence Insurance Name Policy Number Policy Curry Covered Member ID Curry Member ID Guarantor Name 12/07/2022 2 [place] [id number] Ruben Evans [id number] Ruben Evans 12/07/2022 1 [place] Ruben Evans [id number] Ruben Evans 01/10/2023 2 [place] [id number] Ruben Evans [id number] Ruben Evans 01/10/2023 1 [place] Ruben Evans [id number] Ruben Evans Notes Date Note Type Note Provider Name and Address Organization Details Recorded Time 12/07/2022 text/html The patient presents with complaints of intermittent pain along the lateral aspect of his left shoulder. He did undergo left shoulder arthroscopic surgery on October 22, 2019. He got fairly good relief from that surgery initially. He describes his discomfort as achy in nature. He reports mild weakness when lifting his hand above shoulder height. Riaz Dupont MD [address] [facility] [address], [place], [address], [place] [facility] 12/07/2022 15:18:23 01/10/2023 text/html Patient came in with knee pain. However he has seen Dr. Archer for possible revision knee replacement. He recently was seen in [place] by Dr. Ahuja within the last few weeks for which she had x-rays performed his knees. He is here for reevaluation of his knees however he does not want to have x-rays performed at this visit today. He did not bring his imaging studies with him. And is refusing any further imaging without knowing if he is going to get a bill. The patient subsequently left the office. He also stated to staff that he is not sure if he is going to follow Dr. Dupont versus go to Dr. Ahuja versus see Dr. Archer or stay within our practice. All the above-noted information was obtained from Liz Rushing. AJIT WANG PA-C [address] [place] [address] [address], [place], [address], [place] [facility] 01/12/2023 09:49:34
--- OUTSIDE RECORDS SUMMARY | 2024-11-20 15:02 | XMS_ITS | Clinical Summary ---
Author Organization [facility] Address [address] [place] [address] Care Team Providers Care Mold Polisher Name Role Phone Pastor Kate MD Primary Care Provider [phone] Allergies Active Allergy Reactions Criticality Noted Date Comments Amoxicillin Other (See Comments) Medium 12/22/2016 GI upset Amoxicillin-Pot Clavulanate 01/15/2016 Budesonide 07/28/2016 Erythromycin 01/15/2016 Tamsulosin High 01/15/2016 Nsaids 01/15/2016 Salicylates 01/15/2016 Sulfa Antibiotics 05/08/2014 Other reaction(s): GI Upset Medications Medication Sig Dispensed Refills Start Date End Date Status finasteride (PROSCAR) 5 MG tablet 0 12/06/2015 Active SYNTHROID 88 MCG tablet 0 11/07/2015 Active aspirin 81 MG chewable tablet Chew 81 mg by mouth daily. 0 Active cycloSPORINE (RESTASIS) 0.05 % ophthalmic emulsion 1 drop 2 (two) times a day. 0 Active alfuzosin (UROXATRAL) 10 MG 24 hr tablet Take 1 tablet (10 mg total) by mouth daily. 90 tablet 3 05/28/2016 Active baclofen (LIORESAL) 10 MG tablet 0 02/02/2017 Active clonazePAM (KLONOPIN) 1 MG tablet as needed. 0 03/19/2014 Active sildenafil (VIAGRA) 100 MG tablet 1/2 to 1 tab one hour before activity as directed, max 1 tab per day 0 03/08/2017 Active ACETAMINOPHEN EXTRA STRENGTH 500 MG tablet 0 08/23/2019 Active HYDROmorphone (DILAUDID) 2 MG tablet Take 1 to 2 tabs every 4 hours as needed for pain 60 tablet 0 10/16/2019 Active amitriptyline (ELAVIL) 10 MG tablet TK 1 T PO QD HS 0 11/18/2019 Active carisoprodol (SOMA) 350 MG tablet TK 1 T PO TID PRF MUSCLE SPASM 0 11/24/2019 Active LEVOXYL 100 MCG tablet TK 1 T PO QD 0 11/22/2019 Active nortriptyline (PAMELOR) 10 MG capsule TAKE 1 CAPSULE BY MOUTH EVERY DAY AT BEDTIME FOR 4 DAYS THEN 2 CAPSULES AT BEDTIME FOR 4 DAYS THEN 1 CAPSULE IN THE MORNING AND 2 AT BEDTIME 0 04/30/2020 Active Turmeric 500 MG TABS Take by mouth. 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 10/09/2019 Arthritis of knee, left 07/03/2019 Chronic left shoulder pain 03/07/2019 Shoulder impingement syndrome, left 03/06/2019 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 01/31/2019 Osteoarthritis of carpometacarpal (CMC) joint of left thumb 01/31/2019 Volar laxity MCP joint right thumb 01/31/2019 Volar laxity MCP joint left thumb 01/31/2019 Primary osteoarthritis of left knee 12/12/2018 Chronic pain of both knees 12/12/2018 Knee stiffness, right 09/01/2018 Postop check 06/09/2018 BPH (benign prostatic hyperplasia) 01/15/2016 Kidney stone 01/15/2016 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 Family History Medical History Relation Name Comments Cancer Mother Diabetes Paternal Grandfather Heart disease Paternal Uncle Relation Name Status Comments Mother Paternal Grandfather Paternal Uncle Social History Tobacco Use Types Packs/Day Years Used Date Smoking Tobacco: Former Cigarettes Q uit: 01/15/1976 Smokeless Tobacco: Never Comments:off and on since 77 Alcohol Use Standard Drinks/Week Comments No 0 (1 standard drink = 0.6 oz pur e alcohol) Sex and Gender Information Value Date Recorded Sex Assigned at Not on file Gender Identity Not on file Sexual Orientation Not on file Job Start Date Occupation Industry Not on file Not on file Not on file Last Filed Vital Signs Vital Sign Reading Time Taken Comments Blood Pressure 127/83 01/15/2016 11:36 AM EDT Pulse - - Temperature - - Respiratory Rate - - Oxygen Saturation - - Inhaled Oxygen Concentration - - Weight 63 kg (139 lb) 04/30/2022 2:07 PM EDT Height 165.1 cm (5' 5 ) 04/30/2022 2:07 PM EDT Body Mass Index 23.13 04/30/2022 2:07 PM EDT Plan of Treatment Health Maintenance Due Date Last Done Comments Hepatitis C Screening 1950 Depression Screening 1963 Preventative Health Evaluation 1969 DTap / Tdap / Td (1 - Tdap) 1970 Colon Cancer Screening (Colonoscopy) 1996 Shingrix-Zoster Vaccine (1 of 2) 2001 Fall Risk Assessment 2016 COVID-19 Vaccine ( season) 2024 08/17/2021, 11/15/2020 Influenza Vaccine (#1) 2024 , 11/01/2019, 06/14/2017, Additional history exists RSV Adult > 60+ Yrs or (1 - 1-dose 75+ series) 2026 Pneumococcal Vaccine Completed 04/18/2019, 09/14/2017, 07/28/2016 Hepatitis B Vaccines Aged Out No long er eligible based on patient's age to complete this topic RSV Ped < 20 months Aged Out No longe r eligible based on patient's age to complete this topic Care Teams Mold Polisher Relationship Specialty Start Date End Date Pastor Kate MD PCP - General Internal Medicine 04/21/17
--- OUTSIDE RECORDS SUMMARY | 2024-11-20 15:02 | XMS_ITS | Encounter Summary ---
Author Organization [facility] Address [address] [place] [address] Care Team Providers Care Branding Machine Operator Name Role Phone Kj Henry MD Primary Care Provider [phone] Jim Goodman MD Primary Care Provider + [phone] Kj Henry MD Unavailable Encounter Details Date Type Department Care Team (Late st Contact Info) Description 11/29/2016 Scanned Document [address] [phone] Provider, Generic Social History Tobacco Use Types Packs/Day Years Used Date Smoking Tobacco: Never Assessed Sex and Gender Information Value Date Recorded Sex Assigned at Not on file Gender Identity Not on file Sexual Orientation Not on file documented as of this encounter Plan of Treatment Not on file documented as of this encounter Procedures Procedure Name Priority Date/Time Associated Diagnosis Comments ULTRASOUND EXTERNAL RESULT 11/29/2016 documented in this encounter Results * ULTRASOUND EXTERNAL RESULT (11/29/2016) Anatomical Region Laterality Modality Ultrasound Narrative 12/27/2016 3:36 AM EDT Ordered by an unspecified provider. Generic Provider IMG US ORDERABLES documented in this encounter Visit Diagnoses Not on filedocumented in this encounter Care Teams Branding Machine Operator Relationship Specialty Start Date End Date Kj Henry MD 98 [facility] [place] [address] PCP - General 11/24/16 09/21/17 Jim Goodman MD [address] [address] PCP - General 09/22/17 Kj Henry MD [address] [place] [address] 09/22/17 documented as of this encounter
--- OUTSIDE RECORDS SUMMARY | 2024-11-20 15:02 | XMS_ITS | Encounter Summary ---
Author Organization [facility] Address [address] [place] [address] Care Team Providers Care Cupola Operator Insulation Name Role Phone Kj Henry MD Primary Care Provider [phone] Jim Goodman MD Primary Care Provider + [phone] Kj Henry MD Unavailable Encounter Details Date Type Department Care Team (Late st Contact Info) Description 05/31/2016 Scanned Document [address] [address] Provider, Generic Social History Tobacco [...] Procedure Name Priority Date/Time Associated Diagnosis Comments LAB RESULT 05/31/2016 documented in this encounter Results * LAB RESULT (05/31/2016) Narrative 05/31/2016 Ordered by an unspecified provider. Generic Provider HX AMB PROCEDURES documented in this encounter Visit Diagnoses Not on filedocumented in this encounter Care Teams Cupola Operator Insulation Relationship Specialty Start Date End Date Kj Henry MD [address] [place] [address] PCP - General 11/24/16 09/21/17 Jim Goodman MD [address] [address] PCP - General 09/22/17 Kj Henry MD [address] [place] [address] 09/22/17 documented as of this encounter
--- OUTSIDE RECORDS SUMMARY | 2024-11-20 15:02 | XMS_ITS ---
Author Name [facility] Organization Unknown Encounters Encounter Type Encounter Reason Primary Diagnosis Location Date Ambulatory [facility] 01/05/2023 Ambulatory [facility] 01/04/2023 Ambulatory [facility] 01/04/2023
--- OUTSIDE RECORDS SUMMARY | 2024-11-20 15:02 | XMS_ITS | Encounter Summary ---
Author Organization [facility] Address [address] [place] [address] Care Team Providers Care Manufacturer Representative Name Role Phone Kj Henry MD Primary Care Provider [phone] Jim Goodman MD Primary Care Provider + [phone] Kj Henry MD Unavailable Encounter Details Date Type Department Care Team (Late st Contact Info) Description 12/22/2016 Scanned Document [facility] [address] [facility] [address] [place] [phone] Provider, Generic Social History Tobacco Use Types Packs/Day Years Used Date Smoking Tobacco: Former Cigarettes Q uit: 04/12/1976 Smokeless Tobacco: Never Alcohol Use Standard Drinks/Week Comments No 0 (1 standard drink = 0.6 oz pur e alcohol) Sex and Gender Information Value Date Recorded Sex Assigned at Not on file Gender Identity Not on file Sexual Orientation Not on file documented as of this encounter Plan of Treatment Not on file documented as of this encounter Visit Diagnoses Not on filedocumented in this encounter Care Teams Manufacturer Representative Relationship Specialty Start Date End Date Kj Henry MD 98 [facility] [place] [address] PCP - General 11/24/16 09/21/17 Jim Goodman MD 85 [facility] [address] [place] [address] PCP - General 09/22/17 Kj Henry MD [address] [place] [address] 09/22/17 documented as of this encounter
--- OUTSIDE RECORDS SUMMARY | 2024-11-20 15:03 | XMS_ITS | Encounter Summary ---
Author Organization [facility] Address [address] [place], [place] [id number] Care Team Providers Care Organizational Development Director Name Role Phone Kj Henry MD Primary Care Provider [phone] Jim Goodman MD Primary Care Provider + [phone] Kj Henry MD Unavailable Encounter Details Date Type Department Care Team (Late st Contact Info) Description 03/09/2017 Scanned Document [address] [phone] Provider, Generic Social History Tobacco Use Types Packs/Day Years Used Date Smoking Tobacco: Former Cigarettes Q uit: 04/12/1976 Smokeless Tobacco: Never Alcohol Use Standard Drinks/Week Comments Yes 0 (1 standard drink = 0.6 oz pur e alcohol) a glass of wine once in awhile Sex and Gender Information Value Date Recorded Sex Assigned at Not on file Gender Identity Not on file Sexual Orientation Not on file documented as of this encounter Plan of Treatment Not on file documented as of this encounter Procedures Procedure Name Priority Date/Time Associated Diagnosis Comments LAB RESULT 03/09/2017 documented in this encounter Results * LAB RESULT (03/09/2017) Narrative 03/09/2017 Ordered by an unspecified provider. Generic Provider HX AMB PROCEDURES documented in this encounter Visit Diagnoses Not on filedocumented in this encounter Care Teams Organizational Development Director Relationship Specialty Start Date End Date Kj Henry MD [address] [place] [address] [place] [address] PCP - General 11/24/16 09/21/17 Jim Goodman MD [address] [address] PCP - General 09/22/17 Kj Henry MD 98 [facility] [place] [address] 09/22/17 documented as of this encounter
--- OUTSIDE RECORDS SUMMARY | 2024-11-20 15:03 | XMS_ITS | Encounter Summary ---
Author Organization [facility] Address [address] [place] [address] Care Team Providers Care Supervisor Wet Room Name Role Phone Kj Henry MD Primary Care Provider [phone] Jim Goodman MD Primary Care Provider [phone] Kj Henry MD Unavailable Encounter Details Date Type Department Care Team (Late st Contact Info) Description 02/10/2017 Telephone [facility] [place] [address] Ariel Dey MD [address] [place] [address] Social History Tobacco Use Types Packs/Day Years Used Date Smoking Tobacco: Former Cigarettes Q uit: 04/12/1976 Smokeless Tobacco: Never Alcohol Use Standard Drinks/Week Comments No 0 (1 standard drink = 0.6 oz pur e alcohol) Sex and Gender Information Value Date Recorded Sex Assigned at Not on file Gender Identity Not on file Sexual Orientation Not on file documented as of this encounter Miscellaneous Notes * Telephone Encounter - Ann-Marie Rangel LPN - 02/10/2017 4:19 PM EDT lmtcb * Telephone Encounter - Crystal Palafox RN - 02/10/2017 4:08 PM EDT Pls call * Telephone Encounter - Laz Uribe RN - 02/10/2017 3:12 PM EDT Please call pt. * Telephone Encounter - Alyson Da Silva - 02/10/2017 3:07 PM EDT PT Exp urina prob/ feels not emptying bladder would like to speak to nurse mayi. documented in this encounter Plan of Treatment Not on file documented as of this encounter Visit Diagnoses Not on filedocumented in this encounter Care Teams Supervisor Wet Room Relationship Specialty Start Date End Date Kj Henry MD [address] [place] [address] PCP - General 11/24/16 09/21/17 Jim Goodman MD [address] [address] PCP - General 09/22/17 Kj Henry MD [address] [place] [address] 09/22/17 documented as of this encounter
--- OUTSIDE RECORDS SUMMARY | 2024-11-20 15:03 | XMS_ITS | Clinical Summary ---
Author Organization [facility] Address [address] [place] [id number] Care Team Providers Care Optoelectronics Engineer Name Role Phone Pastor Kate MD Primary Care Provider [phone] Allergies No known active allergies Medications levothyroxine (SYNTHROID, LEVOTHROID) 100 MCG tablet Take 100 mcg by mouth daily. Active ClonazePAM (KLONOPIN) 1 MG tablet Take by mouth. Active omeprazole (PRILOSEC) 10 MG capsule Take 10 mg by mouth daily. Active alfuzosin (UROXATRAL) 10 mg 24 hr tablet Take 10 mg by mouth daily. Active Social History Tobacco Use Types Packs/Day Years Used Date Smoking Tobacco: Never Assessed Sex and Gender Information Value Date Recorded Sex Assigned at Not on file Legal Sex Male 8:15 AM EST Gender Identity Not on file Sexual Orientation Not on file Plan of Treatment Health Maintenance Due Date Last Done Comments HIV screening 1964 Hepatitis C screening 1969 Tetanus adult (Td q 10,TDAP once) 1971 Lipid disorder screening 1991 Colon cancer screening, Colonoscopy 1996 Diabetes screening 1996 Shingles vaccine (Shingrix) (1 of 2 - Shingrix (RZV) 2 Dose Standard Series) 2001 Pneumococcal Vaccine (50+ ye ars) (1 of 1 - PCV) 2016 Influenza vaccine 04/12/2024 Covid-19 vaccine series ( - 2023-25 season) 2024 RSV Discussion (1 - 1-dose 7 5+ series) 2026 Meningococcal Vaccine Aged Out No angel bobby eligible based on patient's age to complete this topic Care Teams Optoelectronics Engineer Relationship Specialty Start Date End Date Pastor Kate MD PCP - General Internal Medicine 11/27/11
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
--- OUTSIDE RECORDS SUMMARY | 2024-11-20 15:03 | XMS_ITS | Encounter Summary ---
Author Organization [facility] Address [address] [place] [address] Care Team Providers Care Guest Relations Executive Name Role Phone Jim Goodman MD Primary Care Provider [phone] Kj Henry MD Unavailable Encounter Details Date Type Department Care Team (Late st Contact Info) Description 05/21/2019 Scanned Document [facility] Colorectal Surgery [place] [address] [facility] [address] [place] [id number] Provider, MD Neha [address] [place] [address] Social History Tobacco Use Types Packs/Day Years [...] on filedocumented in this encounter Care Teams Guest Relations Executive Relationship Specialty Start Date End Date Jim Goodman MD [address] [facility] [address] [place] [address] PCP - General 09/22/17 Kj Henry MD [address] [place] [address] [place] [address] 09/22/17 documented as of this encounter
--- OUTSIDE RECORDS SUMMARY | 2024-11-20 15:03 | XMS_ITS | Clinical Summary ---
Author Organization [facility] Address [address] [place] [address] Care Team Providers Care Parks Worker Name Role Phone Jim Goodman MD Primary Care Provider + [phone] Kj Henry MD Unavailable Allergies Active Allergy Reactions Criticality Noted Date Comments Amoxicillin Unknown/Patient and Family Unable to Define Medium 12/22/2016 GI upset Erythromycin Shortness Of Breath High 12/22/2016 Tamsulosin Shortness Of Breath High 11/24/2016 Throat closes off. Nsaids Unknown/Patient and Family Unable to Define Medium 12/22/2016 Salicylates Shortness Of Breath High 12/22/2016 Medications Medication Sig Dispensed Refills Start Date End Date Status SYNTHROID 100 MCG tablet 0 10/04/2016 Active PANTOprazole (PROTONIX) 40 MG EC tablet 0 11/28/2016 Active aspirin 81 MG chewable tablet Chew. Active clonazePAM (KlonoPIN) 1 MG tablet as needed. 03/19/2014 Active cholecalciferol (VITAMIN D3) 400 units tablet Take 400 Units by mouth daily. Active cyanocobalamin 100 MCG tablet Take 100 mcg by mouth daily. Active omega-3 fatty acids (FISH OIL) 1000 MG Cap capsule Take by mouth. Active RESTASIS 0.05 % ophthalmic emulsion 10/04/2016 Activ e escitalopram (LEXAPRO) 20 MG tablet Take 20 mg by mouth daily. 12/16/2016 Active folic acid (FOLVITE) 1 MG tablet Take 1 mg by mouth daily. Active Alpha Lipoic Acid 200 MG Cap Take by mouth. Active Magnesium Oxide 250 MG Tab tablet Take 250 mg by mouth 2 (two) times a day. Take 2 hours apart from other medications; take with food Active Turmeric, Curcuma Longa, (CURCUMIN) Powder by Does not apply route. Active coenzyme q-10 (CO Q 10) 200 MG Cap Take by mouth daily. Active GUGGULIPID-BLACK PEPPER PO Take by mouth. Active Garlic 100 MG Tab Take by mouth. Act huey calcium carbonate (OS-CARLYLE) 600 MG tablet Take 600 mg by mouth every morning with breakfast. Active Theanine 50 MG Tablet Dispersible Take by mouth. Ac tive DHEA 10 MG Cap Take by mouth. Active baclofen (LIORESAL) 10 MG tablet 02/02/2017 Active sildenafil (VIAGRA) 100 MG tabletIndications:Er ectile dysfunction, unspecified erectile dysfunction type 1/2 to 1 tab one hour before activity as directed, max 1 tab per day 6 tablet 2 03/08/2017 Active alfuzosin (UROXATRAL) 10 MG 24 hr tabletIndications:Be nign non-nodular prostatic hyperplasia, presence of lower urinary tract symptoms unspecified Take 1 tablet (10 mg total) by mouth daily. 90 tablet 3 03/09/2017 Active lidocaine (XYLOCAINE) 5 % ointmentIndications: Anal fissure Apply topically 4 (four) times a day as needed for mild pain. 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 Frequency of micturition 02/28/2017 Incomplete bladder emptying 02/28/2017 Anal fissure 12/09/2016 Family History Medical History Relation Name Comments Emphysema Father Cancer Mother Relation Name Status Comments Father Mother Social History Tobacco Use Types Packs/Day Years [...] on file Sexual Orientation Not on file Last Filed Vital Signs Vital Sign Reading Time Taken Comments Blood Pressure 116/78 10/02/2018 2:38 PM EST Pulse 78 10/02/2018 2:38 PM EST Temperature 37.1 ??C (98.7 ??F) 12/09/2016 3:42 PM ED T Respiratory Rate 16 03/09/2017 11:35 AM EDT Oxygen Saturation 99% 10/02/2018 2:38 PM EST Inhaled Oxygen Concentration - - Weight 61.2 kg (135 lb) 10/02/2018 2:38 PM EST Height 165.1 cm (5' 5 ) 10/02/2018 2:38 PM EST Body Mass Index 22.47 10/02/2018 2:38 PM EST Plan of Treatment Health Maintenance Due Date Last Done Comments Hepatitis C Virus Screening 1950 DTaP/Tdap/Td Vaccines (1 - Tdap) 1970 Colonoscopy 1996 Pneumococcal Vaccines 50+ (1 of 1 - PCV) 2001 Zoster (Shingles) Vaccine (1 of 2) 2001 Influenza Vaccine 04/12/2024 COVID-19 Vaccine (1 - 2023-2 5 season) 2024 RSV Vaccine 60 years and old er and Patients (1 - 1-dose 75+ series) 2026 Hepatitis B Vaccines Aged Out No long er eligible based on patient's age to complete this topic Care Teams Parks Worker Relationship Specialty Start Date End Date Jim Goodman MD [address] [place] [id number] PCP - General 09/22/17 Kj Henry MD [address] [place] [address] 09/22/17
--- OUTSIDE RECORDS SUMMARY | 2024-11-20 15:03 | XMS_ITS | Clinical Summary ---
Author Organization [employer] Address [address] [place] [address] Care Team Providers Care Senior Case Manager Name Role Phone Lorna Masters NP Primary Care Provider [phone] Surgical History Surgery Date Site/Laterality Comments CHOLECYSTECTOMY PROCEDURE: HISTORICAL CHOLECYSTECTOMY TURP / TRANSURETHRAL INCISION / DRAINAGE PROSTATE PROCEDURE: HISTORICAL TURP UPPER GASTROINTESTINAL ENDOSCOPY 06/09/2016 PROCEDURE: RI UPPER GI ENDOSCOPY PERFORMED; COMMENT: Dr. Long - normal bx taken CORONARY STENT PLACEMENT 2012 PROCEDURE: STENT, CORONARY, BRAN; COMMENT: [place] 10/2012 s/p stent LAD BACK SURGERY 2010 and 2011 PROCEDURE: HISTORICAL BACK SURGERY TOTAL KNEE ARTHROPLASTY 05/26/2018 Right PROCEDURE: RI ARTHRP KNE CONDYLE&PLATU MEDIAL&LAT COMPARTMENTS; COMMENT: Dr. Dupont EYE SURGERY PROCEDURE: HISTORICAL EYE SURGERY; COMMENT: for ptosis via Dr. Parra HAND SURGERY Bilateral PROCEDURE: RI UNLISTED PROCEDURE HANDS/FINGERS; COMMENT: LRTI COLONOSCOPY 03/30/2021 PROCEDURE: HISTORICAL COLONOSCOPY COLONOSCOPY 2015 PROCEDURE: HISTORICAL COLONOSCOPY Medical History Medical History Date Comments MAK (obstructive sleep apnea) 10/23/2015 DX :MAK (obstructive sleep apnea) Asthma 03/04/2017 DX:Asthma CAD (coronary artery disease ), [place] coronary artery 04/18/2018 DX:CAD (coronary artery dise ase), [place] coronary artery; COMMENT: [place] Dysphagia 04/11/2018 DX:Dysphagia Elevated lipase 03/03/2018 DX:Elevated lipa se Erosive gastritis 10/23/2015 DX:Erosive gas tritis 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 Hernandez Hemorrhoids 10/23/2015 DX:Hemorrhoids Hyperlipemia 03/03/2018 DX:Hyperlipemia Kidney stones 07/28/2016 DX:Kidney stones Liver cyst 11/28/2017 DX:Liver cyst Vitamin D deficiency 03/03/2018 DX:Vitamin D deficiency Anxiety 08/22/2018 DX:Anxiety Elevated serum creatinine DX:Isela vated serum creatinine Chronic back pain DX:Chronic justine k pain; COMMENT: f/u pain management at [facility] in [place] Dr. Keith Abnormality of urination DX:Abno rmality of urination; COMMENT: f/u urologist Dr. Temple Arthritis DX:Arthritis Degenerative disc disease, lumbar DX:Degenerative disc disease, lumbar Dyspnea DX:Dyspnea Hypothyroidism DX:Hypothyroidis m IgA monoclonal gammopathy of uncertain significance DX:IgA monoclonal gammopathy of uncertain significance Renal cyst DX:Renal cyst BPH with obstruction/lower u rinary tract symptoms DX:BPH with obstruction/lowe r urinary tract symptoms Family History Medical History Relation Name Comments Diabetes Paternal Grandfather Relation Name Status Comments Paternal Grandfather Social History Tobacco Use Types Packs/Day Years Used Date Smoking Tobacco: Former Smokeless Tobacco: Never Alcohol Use Standard Drinks/Week Comments Never 0 (1 standard drink = 0.6 oz pur e alcohol) Sex and Gender Information Value Date Recorded Sex Assigned at Not on file Legal Sex Male 7:25 AM EST Gender Identity Not on file Sexual Orientation Not on file Obstetrics History Last Filed Vital Signs Vital Sign Reading Time Taken Comments Blood Pressure 118/80 06/20/2024 10:31 AM EDT Si tting L Arm Pulse 72 06/20/2024 10:31 AM EDT Temperature - - Respiratory Rate - - Oxygen Saturation - - Inhaled Oxygen Concentration - - Weight 62.6 kg (138 lb) 06/20/2024 10:31 AM EDT Height 165.1 cm (5' 5 ) 06/20/2024 10:31 AM EDT Body Mass Index 22.96 06/20/2024 10:31 AM EDT Plan of Treatment Health Maintenance Due Date Last Done Comments COVID-19 Vaccine (#1) 1956 DTaP,Tdap,and Td Vaccines (1 - Tdap) 1970 Hepatitis A Vaccines (1 of 2 - Risk 2-dose series) 1970 Zoster Vaccines (1 of 2) 2001 Hepatitis B Vaccines (1 of 3 - Risk 3-dose series) 2011 RSV Immunization Patients 60 + Years Old (1 - Risk 60-74 years 1-dose series) 2011 Pneumococcal Vaccine: 50+ Years (2 of 2 - PCV) 09/14/2018 09/14/2017 Abdominal Aortic Aneurysm (AAA) Screen 08/19/2022 Cholesterol Screening (Lipid Panel) 08/19/2022 Colorectal Cancer Screening: Colonoscopy 08/19/2022 Depression Screening 08/19/2022 Falls Risk Assessment 08/19/2022 Hepatitis C Screening 08/19/2022 Social Influencers of Health Screening 08/19/2022 Hypertension/CHF/CAD Annual BMP Blood Test 08/22/2022 Influenza Vaccine (#1) 2024 0, 11/10/2019, 06/14/2017 HIB Vaccines Aged Out No longer eligi ble based on patient's age to complete this topic HPV Vaccines Aged Out No longer eligi ble based on patient's age to complete this topic IPV Vaccines Aged Out No longer eligi ble based on patient's age to complete this topic MMR Vaccines Aged Out No longer eligi ble based on patient's age to complete this topic Meningococcal ACWY Vaccine Aged Out N o longer eligible based on patient's age to complete this topic Meningococcal B Vacine Aged Out No lo nger eligible based on patient's age to complete this topic RSV Immunization Patients Under 20 months Aged Out No longer eligible b ased on patient's age to complete this topic Varicella Vaccines Aged Out No longer eligible based on patient's age to complete this topic Advance Directives Documents on File Type Date Recorded Patient Editorial Director Expl anation Health Care Decision (hx) 01/31/2023 AD RAE DIRECTIVE Health Care Decision (hx) 01/31/2023 AD RAE DIRECTIVE Health Care Decision (hx) 01/31/2023 AD RAE DIRECTIVE Health Care Decision (hx) 01/31/2023 AD RAE DIRECTIVE Care Teams Senior Case Manager Relationship Specialty Start Date End Date Lorna Masters, MATERIALS HANDLING EQUIPMENT OPERATOR [address] [place], [place] PCP - General 04/26/24
--- OUTSIDE RECORDS SUMMARY | 2024-11-20 15:03 | XMS_ITS | Encounter Summary ---
Author Organization [facility] Address [address] [place] [address] Care Team Providers Care Battery Assembler Dry Cell Name Role Phone Jim Goodman MD Primary Care Provider [phone] Kj Henry MD Unavailable Encounter Details Date Type Department Care Team (Late st Contact Info) Description 10/06/2018 Scanned Document [facility] Colorectal Surgery [address] [place] [address] Provider, MD Neha [address] [place] [address] Social History Tobacco Use Types Packs/Day Years [...] on filedocumented in this encounter Care Teams Battery Assembler Dry Cell Relationship Specialty Start Date End Date Jim Goodman MD 85 [facility] [address] [place] [address] PCP - General 09/22/17 Kj Henry MD [address] [place] [address] [place] [address] 09/22/17 documented as of this encounter
== END 2024-11-20 13:30 | disposition home or self-care (01) ==
LOC: HO.HOS 12:29
PROVIDERS: PCP Internal Medicine; Visit Provider Orthopaedic Surgery
DX: M25.551 Pain in right hip (principal); M17.12 Unilateral primary osteoarthritis, left knee
CPT/HCPCS: 99214; G2211

== ENCOUNTER 2024-11-20 12:48 | Outpatient (REF) | payer MEDICARE, SELFPAY ==
--- NOTE | ~2024-11-20 | XR_ITS ---
CLINICAL HISTORY: M25.562 - Pain in left knee 3 view left knee Comparison: None Findings: Bones intact. No dislocations. Moderate narrowing of the medial joint compartment and patellofemoral joint. Small suprapatellar joint effusion. No radiopaque foreign body. IMPRESSION: 1. Small joint effusion. 2. No acute fracture or dislocation. 3. Moderate arthritic changes. This document has been electronically signed by: Quita Fernandez DO on 11/21/2024 16:07:27
--- NOTE | ~2024-11-20 | XR_ITS ---
CLINICAL HISTORY: M25.561 - Pain in right knee 3 view right knee Comparison: None Findings: Bones intact. No dislocations. There is moderately severe medial compartment joint space narrowing. Small knee joint effusion. No radiopaque foreign body. IMPRESSION: Moderately severe medial compartment joint space narrowing with a small knee joint effusion This document has been electronically signed by: Man Rosales MD on 11/22/2024 07:11:58
--- NOTE | ~2024-11-20 | XR_ITS ---
EXAMINATION: XR HIP, RIGHT CLINICAL INFORMATION: M25.551 - Pain in right hip COMPARISON: None available. TECHNIQUE: Two views of the right hip. FINDINGS: Subchondral cyst formation and sclerosis along the articular surface of the right acetabulum. No acute cortical disruption or malalignment. No lytic or blastic lesions. Metallic hardware from a posterior lumbar fusion no fully included. Vascular clips overlapping the penis. Focal well-corticated subcentimeter calcifications in the soft tissues of the lateral proximal right thigh.. XR/XR hip RT min 2V IMPRESSION: Mild osteoarthrosis, right coxofemoral joint. No acute fracture or dislocation. Electronically signed by: Armando Altamirano MD 11/20/2024 03:09 PM EDT
== END 2024-11-20 12:49 | disposition home or self-care (01) ==
LOC: HO.HOSX 12:48
PROVIDERS: Visit Provider Orthopaedic Surgery
DX: M17.12 Unilateral primary osteoarthritis, left knee (principal); M25.551 Pain in right hip; M25.562 Pain in left knee; M25.561 Pain in right knee
CPT/HCPCS: 73502; 73562; 99212

== ENCOUNTER → 2024-11-20 12:54 | Outpatient (BNV) | payer MEDICARE, SELFPAY | PROVIDERS: Visit Provider Radiology Diagnostic Radiology | DX: M25.551 Pain in right hip (principal) | CPT/HCPCS: 73502 ==

== ENCOUNTER 2024-12-04 14:44 | Outpatient (AMB) | payer MEDICARE, SELFPAY ==
[2024-12-04 14:50] VITALS: BMI 23.8
--- NOTE | 2024-12-04 14:50 | MHC.OFFVIS ---
Vital Signs 12/04/24 14:50 Height 5 ft 5 in Weight 143 lb BMI 23.8 Intake Visit Reasons: Left knee pain Intake Note: Ruben is a 74 year old male who presents with complaints of progressively worsening left knee pain. He has undergone right total knee replacement surgery in the past. He describes his left knee pain as sharp in nature. He continues to take a spin class for exercise. He would like to hold off on left total knee replacement surgery for as long as possible. today for a left knee Durolane injection. Allergies tamsulosin [Flomax] Allergy (Unknown, Verified 12/04/24 14:51) Unknown statins Adverse Reaction (Unknown, Uncoded 12/04/24 14:51) myalgia Medication List - Last Reconciled 12/05/24 by Riaz Dupont MD alfuzosin ER 10 mg PO DAILY amoxicillin 2,000 mg PO ONCE PRN clonazepam 1 mg PO DAILY PRN finasteride 5 mg PO DAILY levothyroxine 100 mcg PO DAILY methylprednisolone (Medrol (Yoan)) PO PER PKG DIR pentoxifylline ER 400 mg PO BID 90 days vitamin E (dl, acetate) 450 mg PO DAILY 90 days [facility] Medical History BPH (benign prostatic hyperplasia) Psychosexual disorder Urinary retention Pain in both testicles Peyronie disease Lower urinary tract symptoms Nephrolithiasis Enlarged prostate with lower urinary tract symptoms (LUTS) History of hypothyroidism Surgical History History of total right knee replacement History of back surgery Family History Father No problems noted. Mother No problems noted. Social History Patient Tobacco Use Status: Never used Tobacco Current occupational status: retired Current occupation: right hand dominant Physical Exam Vital Signs: BMI result Body Mass Index 23.8 Extrem Other: Left knee examination shows a minimal effusion, mild crepitus with range of motion, pain with range of motion, no instability Office Procedures AMB Joint Injection/Aspiration Joint Injection/Aspiration Primary Site: left knee Prep: site was prepped using aseptic technique Injected: 60 mg of (Durolane viscosupplementation) and 1% plain lidocaine Procedure: The patient tolerated the procedure well Coding - Large joint Procedure code (CPT) selection complete Results Reviewed Results Reviewed: X-rays of the patient's left knee taken previously show joint space narrowing, subchondral sclerosis, no acute bony abnormalities Assessment & Plan Assessment & Plan (1) Osteoarthritis of left knee: Code(s): M17.12 - Unilateral primary osteoarthritis, left knee Category: Medical (2) Left knee pain: Code(s): M25.562 - Pain in left knee Category: Medical Plan Mr. Evans presents with left knee pain due to osteoarthritis. The risks and benefits of a Durolane viscosupplementation injection were discussed at length with the patient. The patient wished to proceed. He tolerated the injection well. He will continue with his exercise program. He will contact me prior to his follow-up appointment in 3 months should any questions or concerns arise. I spent 22 minutes in reviewing the patient's records and imaging studies, seeing the patient and documenting in the medical record. Orders: Orders AMB Joint Injection/Aspiration 12/04/24 M17.12 - Unilateral primary osteoarthritis, left knee Coding Level of Care Code Est Pt Level 3 (40350) Complex EM visit Add On G2211 Diagnoses Osteoarthritis of left knee M17.12 Left knee pain M25.562 CPT Codes Coding - 69141 Large joint: 08444 - Large joint ([id number])
--- OUTSIDE RECORDS SUMMARY | 2024-12-04 18:29 | XMS_ITS | Clinical Summary ---
Author Organization [facility] Address [address] [place] [address] Care Team Providers Care Director Safety Name Role Phone Pastor Kate MD Primary Care Provider [phone] Allergies Active Allergy Reactions Criticality Noted Date [...] age to complete this topic Care Teams Director Safety Relationship Specialty Start Date End Date Pastor Kate MD PCP - General Internal Medicine 04/21/17
--- OUTSIDE RECORDS SUMMARY | 2024-12-04 18:30 | XMS_ITS | Encounter Summary ---
Author Organization [facility] Address [address] [place] [address] Care Team Providers Care Die Cast Operator Name Role Phone Kj Henry MD Primary Care Provider [phone] Jim Goodman MD Primary Care Provider [phone] Kj Henry MD Unavailable Encounter Details Date Type Department Care Team (Late st Contact Info) Description 02/10/2017 Telephone [facility] [place] [address] Ariel Dey MD [address] [place] [address] Social History Tobacco Use Types Packs/Day Years [...] on filedocumented in this encounter Care Teams Die Cast Operator Relationship Specialty Start Date End Date Kj Henry MD [address] [place] [address] PCP - General 11/24/16 09/21/17 Jim Goodman MD [address] [address] PCP - General 09/22/17 Kj Henry MD [address] [place] [address] 09/22/17 documented as of this encounter
--- OUTSIDE RECORDS SUMMARY | 2024-12-04 18:30 | XMS_ITS | Clinical Summary ---
Author Organization [facility] Address [address] [place] [address] Care Team Providers Care Ceramic Research Engineer Name Role Phone Pastor Kate MD Primary Care Provider [phone] Allergies No known active allergies Medications levothyroxine [...] series ( - 2023-25 season) 2024 RSV Immunization (1 - 1-dose 75+ series) 2026 Meningococcal Vaccine Aged Out No angel bobby eligible based on patient's age to complete this topic Care Teams Ceramic Research Engineer Relationship Specialty Start Date End Date Pastor Kate MD PCP - General Internal Medicine 11/27/11
--- OUTSIDE RECORDS SUMMARY | 2024-12-04 18:30 | XMS_ITS | Encounter Summary ---
Author Organization [facility] Address [address] [place] [address] Care Team Providers Care Blood Bank Technician Name Role Phone Jim Goodman MD Primary Care Provider [phone] Kj Henry MD Unavailable Encounter Details Date Type Department Care Team (Late st Contact Info) Description 10/06/2018 Scanned Document [facility] Colorectal Surgery [address] [place] [address] Provider, MD Neha [address] [place] [address] Social History Tobacco Use Types Packs/Day Years [...] on filedocumented in this encounter Care Teams Blood Bank Technician Relationship Specialty Start Date End Date Jim Goodman MD 85 [facility] [address] [place] [address] PCP - General 09/22/17 Kj Henry MD [address] [place] [address] [place] [address] 09/22/17 documented as of this encounter
--- OUTSIDE RECORDS SUMMARY | 2024-12-04 18:30 | XMS_ITS | Data Portability ---
Author Organization [facility] Address [address] [place] [address] Care Team Providers Care Chicken Dresser Name Role Phone DESIREE MILLER Primary Care Provider Assessment Encounter Date Assessment Date Assessment LastModified [...] Time Impingement syndrome of left shoulder region [id number] 04 Active 2022 Riaz Dupont MD [address] [facility] [address], [place], [address] , [place] [facility] 3 15:16:39 Problem Notes None recorded. Procedures Surgical History Date Name Laterality Status Provider Name and Address Organization Details Recorded Time Total knee arthroplasty completed Yas Fam [facility], [facility] 12/07/2022 13:03:05 Shoulder Surgery completed Yasheather Fam [facility] 12/07/2022 13:03:11 Hernia Repair completed Yas Fam [facility] 12/07/2022 13:03:17 cholecystectomy completed Yas Fam [facility] 12/07/2022 13:03:25 operation on prostate completed [facility] 12/07/2022 13:03:43 [facility]ctomy completed [facility] 12/07/[facility] 13:03:53 Imaging Results None recorded. Procedure Notes None recorded. Medical Equipment None Reported. Allergies Allergen ID Allergen Name Allergen Category Reaction Reaction Severity Criticality Documentation Date Start Date Code Code System Note Provider Name and Address Organization Details Recorded Time 1006 Flomax medicatio n Not available Not available Not available 12/07/2022 88513 3 RxNorm Yas Fam null, [place] [facility] 3 13:01:45 1007 amoxicill in medicatio n Not available Not available Not available 12/07/2022 723 RxNorm Yas Fam null, [facility] 3 13:01:53 1008 Augmentin medicatio n Not available Not available Not available 12/07/2022 93406 2 RxNorm Yas Fam null, [facility], [facility] 3 13:01:59 1009 budesonid e medicatio n Not available Not available Not available 12/07/2022 96428 RxNorm Yas Fam null, [facility] 3 13:02:07 1010 erythromy max medicatio n Not available Not available Not available 12/07/2022 4053 RxNorm Yas Fam null, [facility] 3 13:02:15 1011 Non-stero idal anti-infl ammatory agent (product) medicatio n Not available Not available Not available 12/07/2022 70114 005 SNOMED Yas Sarwat null, [facility] 3 13:02:21 1012 salicylat e medicatio n Not available Not available Not available 12/07/2022 9522 RxNorm Yas Fam null, [facility] 3 13:02:33 1013 Substance with sulfonami de structure and antibacte rial mechanism of action (substanc e) medicatio n Not available Not available Not available 12/07/2022 10072 8003 SNOMED Yas Fam null, [facility] 3 13:02:39 Medications Name Sig Start [...] Updated DateTime 12/07/2022 165.1 cm 23.3 kg/m2 45680.[address] [facility] 12/07/2022 13:07:57 Social History None recorded. Functional Status None recorded. Mental Status None recorded. Family History Nothing Reported. Medical History Condition Response Heart Disease Y Thyroid Problems Y Past Encounters Encounter ID Performer Location Encounter Start Date Encounter Closed Date Diagnosis/Indication Diagnosis SNOMED-CT Code Diagnosis ICD10 Code Diagnosis Note [id number] MD ARETHA Baptiste [facility] [address] [facility] [address] [place] [address] 12/07/2022 12:57:12 12/07/2022 13:26:06 Impingement syndrome of left shoulder region 2069734597 16014 M75.42 [id number] MD ARETHA Singh [facility] [address] [facility] [address] [place] [address] 01/10/2023 12:54:42 01/12/2023 09:49:35 Aftercare 563307790 Z51.89 Health Concerns Section Related Observation LastModified by Organization Detai ls LastModified Time None Recorded Concern Status LastModified by Organization Details LastModified Time None Recorded Advance Directives Directive None Recorded Payers Encounter Date Sequence Insurance Name Policy Number Policy Curry Covered Member ID Curry Member ID Guarantor Name 12/07/2022 2 [place] [id number] Ruben Evans [id number] Ruben Evans 12/07/2022 1 [place] Ruben Evans [id number] Ruben Evans 01/10/2023 2 [place] [id number] Ruben Evans [id number] Ruben Evans 01/10/2023 1 [place] Ruben Evans [id number] Ruben Evans Notes Date Note Type [...] above shoulder height. Riaz Dupont MD [address] [facility] [address], [place], [address], [place] [facility] 12/07/2022 15:18:23 01/10/2023 text/html Patient came in with knee pain. However he has seen Dr. Archer for possible revision knee replacement. He recently was seen in [place] by Dr. Ahuja within the last few [...] obtained from Liz Rushing. AJIT WANG PA-C [address] [place] [address] [address], [place], [address], [place] [facility] 01/12/2023 09:49:34
--- OUTSIDE RECORDS SUMMARY | 2024-12-04 18:30 | XMS_ITS | Encounter Summary ---
Author Organization [facility] Address [address] [place] [address] Care Team Providers Care Bath Mix Operator Name Role Phone Kj Henry MD Primary Care Provider [phone] Jim Goodman MD Primary Care Provider [phone] Kj Henry MD Unavailable Encounter Details Date Type Department Care Team (Late st Contact Info) Description 05/31/2016 Scanned Document [address] [address] Provider, Generic Social History Tobacco [...] on filedocumented in this encounter Care Teams Bath Mix Operator Relationship Specialty Start Date End Date Kj Henry MD [address] [place] [address] PCP - General 11/24/16 09/21/17 Jim Goodman MD [address] [address] PCP - General 09/22/17 Kj Henry MD [address] [place] [address] 09/22/17 documented as of this encounter
--- OUTSIDE RECORDS SUMMARY | 2024-12-04 18:30 | XMS_ITS | Encounter Summary ---
Author Organization [facility] Address [address] [place], [place] [address] Care Team Providers Care Technical Operations Manager Name Role Phone Kj Henry MD Primary Care Provider [phone] Jim Goodman MD Primary Care Provider [phone] Kj Henry MD Unavailable Encounter Details Date Type Department Care Team (Late st Contact Info) Description 03/09/2017 Scanned Document [address] [address] Provider, Generic Social History Tobacco [...] on filedocumented in this encounter Care Teams Technical Operations Manager Relationship Specialty Start Date End Date Kj Henry MD [address] [place] [address] [place] [address] PCP - General 11/24/16 09/21/17 Jim Goodman MD [address] [address] PCP - General 09/22/17 Kj Henry MD 98 [facility] [place] [address] 09/22/17 documented as of this encounter
--- OUTSIDE RECORDS SUMMARY | 2024-12-04 18:30 | XMS_ITS | Encounter Summary ---
Author Organization [facility] Address [address] [place] [address] Care Team Providers Care Ice Cream Chef Name Role Phone Kj Henry MD Primary Care Provider [phone] Jim Goodman MD Primary Care Provider + [phone] Kj Henry MD Unavailable Encounter Details Date Type Department Care Team (Late st Contact Info) Description 11/29/2016 Scanned Document [address] [address] Provider, Generic Social History Tobacco [...] on filedocumented in this encounter Care Teams Ice Cream Chef Relationship Specialty Start Date End Date Kj Henry MD 98 [facility] [place] [address] PCP - General 11/24/16 09/21/17 Jim Goodman MD [address] [address] PCP - General 09/22/17 Kj Henry MD [address] [place] [address] 09/22/17 documented as of this encounter
--- OUTSIDE RECORDS SUMMARY | 2024-12-04 18:30 | XMS_ITS | Encounter Summary ---
Author Organization [facility] Address [address] [place] [address] Care Team Providers Care Recooperer Name Role Phone Jim Goodman MD Primary Care Provider [phone] Kj Henry MD Unavailable Encounter Details Date Type Department Care Team (Late st Contact Info) Description 05/21/2019 Scanned Document [facility] Colorectal Surgery [place] 85 [facility] [address] [place] [address] Provider, MD Neha [address] [place] [address] Social History Tobacco Use Types Packs/Day Years [...] on filedocumented in this encounter Care Teams Recooperer Relationship Specialty Start Date End Date Jim Goodman MD 85 [facility] [address] [place] [address] PCP - General 09/22/17 Kj Henry MD [address] [place] [address] [place] [address] 09/22/17 documented as of this encounter
--- OUTSIDE RECORDS SUMMARY | 2024-12-04 18:30 | XMS_ITS | Clinical Summary ---
Author Organization [email or web address] Address [address] [place] [address] Care Team Providers Care Swimming Pool Cleaner Name Role Phone Lorna Masters NP Primary Care Provider [phone] Surgical History Surgery Date Site/Laterality Comments CHOLECYSTECTOMY PROCEDURE: HISTORICAL CHOLECYSTECTOMY TURP / TRANSURETHRAL INCISION / DRAINAGE PROSTATE PROCEDURE: HISTORICAL TURP UPPER GASTROINTESTINAL ENDOSCOPY 06/09/2016 PROCEDURE: CT UPPER GI ENDOSCOPY PERFORMED; COMMENT: Dr. Long - normal bx taken CORONARY STENT PLACEMENT 2012 PROCEDURE: STENT, CORONARY, BRAN; COMMENT: [place] 10/2012 s/p stent LAD BACK SURGERY 2010 and 2011 PROCEDURE: HISTORICAL BACK SURGERY TOTAL KNEE ARTHROPLASTY 05/26/2018 Right PROCEDURE: CT ARTHRP KNE CONDYLE&PLATU MEDIAL&LAT COMPARTMENTS; COMMENT: Dr. Dupont EYE SURGERY PROCEDURE: HISTORICAL EYE SURGERY; COMMENT: for ptosis via Dr. Parra HAND SURGERY Bilateral PROCEDURE: CT UNLISTED PROCEDURE HANDS/FINGERS; COMMENT: LRTI COLONOSCOPY 03/30/2021 PROCEDURE: HISTORICAL COLONOSCOPY COLONOSCOPY 2015 PROCEDURE: HISTORICAL COLONOSCOPY Medical History Medical History Date Comments MAK (obstructive sleep apnea) 10/23/2015 DX :MAK (obstructive sleep apnea) Asthma 03/04/2017 DX:Asthma CAD (coronary artery disease ), [place] coronary artery 04/18/2018 DX:CAD (coronary artery dise ase), [place] coronary artery; COMMENT: [place] Dysphagia 04/11/2018 DX:Dysphagia Elevated lipase 03/03/2018 DX:Elevated lipa se Erosive gastritis 10/23/2015 DX:Erosive gas tritis 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 Hernandez Hemorrhoids 10/23/2015 DX:Hemorrhoids Hyperlipemia 03/03/2018 DX:Hyperlipemia Kidney stones 07/28/2016 DX:Kidney stones Liver cyst 11/28/2017 DX:Liver cyst Vitamin D deficiency 03/03/2018 DX:Vitamin D deficiency Anxiety 08/22/2018 DX:Anxiety Elevated serum creatinine DX:Isela vated serum creatinine Chronic back pain DX:Chronic justine k pain; COMMENT: f/u pain management at [facility] in [place] Dr. Keith Abnormality of urination DX:Abno rmality [...] Documents on File Type Date Recorded Patient Participant Administrator Expl anation Health Care Decision (hx) 01/31/2023 AD RAE DIRECTIVE Health Care Decision (hx) 01/31/2023 AD RAE DIRECTIVE Health Care Decision (hx) 01/31/2023 AD RAE DIRECTIVE Health Care Decision (hx) 01/31/2023 AD RAE DIRECTIVE Care Teams Swimming Pool Cleaner Relationship Specialty Start Date End Date Lorna Masters, BOAT DECKHAND [address] [place], [place] PCP - General 04/26/24
--- OUTSIDE RECORDS SUMMARY | 2024-12-04 18:30 | XMS_ITS | Clinical Summary ---
Author Organization [facility] Address [address] [place] [address] Care Team Providers Care Log Hooker Name Role Phone Jim Goodman MD Primary Care Provider + [phone] Kj Henry MD Unavailable Allergies Active Allergy [...] age to complete this topic Care Teams Log Hooker Relationship Specialty Start Date End Date Jim Goodman MD [address] [place] [address] PCP - General 09/22/17 Kj Henry MD [address] [place] [address] 09/22/17
--- OUTSIDE RECORDS SUMMARY | 2024-12-04 18:30 | XMS_ITS | Encounter Summary ---
Author Organization [facility] Address [address] [place] [address] Care Team Providers Care Certified Wellness Program Coordinator Name Role Phone Kj Henry MD Primary Care Provider [phone] Jim Goodman MD Primary Care Provider + [phone] Kj Henry MD Unavailable Encounter Details Date Type Department Care Team (Late st Contact Info) Description 12/22/2016 Scanned Document [facility] 80 [facility] [address] [place] [address] Provider, Generic Social History Tobacco Use [...] on filedocumented in this encounter Care Teams Certified Wellness Program Coordinator Relationship Specialty Start Date End Date Kj Henry MD 98 [facility] [place] [address] PCP - General 11/24/16 09/21/17 Jim Goodman MD 85 [facility] [address] [place] [address] PCP - General 09/22/17 Kj Henry MD [address] [place] [address] 09/22/17 documented as of this encounter
== END 2024-12-04 15:27 | disposition home or self-care (01) ==
LOC: HO.HOS 14:45
PROVIDERS: Visit Provider Orthopaedic Surgery
DX: M17.12 Unilateral primary osteoarthritis, left knee (principal)
CPT/HCPCS: 20610; 99213

== ENCOUNTER → 2024-12-04 14:44 | Outpatient (BNVA) | payer MEDICARE, SELFPAY | PROVIDERS: Visit Provider Orthopaedic Surgery | DX: M17.12 Unilateral primary osteoarthritis, left knee (principal) | CPT/HCPCS: 20610; 99212; J2003; J7318 ==

== ENCOUNTER 2024-12-10 13:49 | Outpatient (AMB) | payer MEDICARE, SELFPAY ==
--- NOTE | 2024-12-10 13:47 | MHC.OFFVIS ---
Intake Visit Reasons: 6m/PSA Intake Note: Patient presents to the office today for a 6 month follow up/PSA. Total PSA:1.5 Urology Medication:Alfuzosin, Finasteride Blood Thinner:none Allergy to Antibiotic:none PVR:57ml Allergies tamsulosin [Flomax] Allergy (Unknown, Verified 12/04/24 14:51) Unknown statins Adverse Reaction (Unknown, Uncoded 12/04/24 14:51) myalgia Medication List - Last Reconciled 12/10/24 by Nissa Adams MD alfuzosin ER 10 mg PO DAILY amoxicillin 2,000 mg PO ONCE PRN clonazepam 1 mg PO DAILY PRN finasteride 5 mg PO DAILY levothyroxine 100 mcg PO DAILY methylprednisolone (Medrol (Yoan)) PO PER PKG DIR pentoxifylline ER 400 mg PO BID 90 days vitamin E (dl, acetate) 450 mg PO DAILY 90 days HPI Comments Details: 12/10/2024--Ruben is here for follow-up. He is followed for Peyronie's and BPH. The patient is prescribed pentoxifylline and is taking corz-ojz-pzosioe vitamin-E for Peyronie's. He continues to take the alfuzosin and finasteride. Discussed continue PSA screening Results: PSA results, 10/04/24----1.5 ng/mL. History of Present Illness The patient is a 74-year-old male presenting with urinary symptoms management and medication refills. He has a history of Benign Prostatic Hyperplasia, managed with medications including alfuzosin and vitamin E. Previously, he was prescribed Prozac for managing Obsessive Compulsive Disorder but stopped it due to adverse effects like urinary difficulty. Since discontinuation, nocturnal frequency has increased to two to three times nightly, on a schedule at approximately 12:30 AM and 4:00 AM. The patient reports incomplete bladder emptying and periodic urgency. Foot-watering issues of Pendofilin caused medication delays. A PSA was reportedly 1.5 in September. The patient is using vitamin E and has hypothyroidism. Urinary Symptoms Review - Increased nocturia: 2-3 times nightly - Incomplete bladder emptying - Frequent urge to urinate shortly after voiding - Difficulty in urination, worsened after starting and stopping Prozac - Clear urine without hematuria noted today Results - Labs: PSA level of 1.5 recorded in September Discussion Notes During the consultation, strategies to manage urinary symptoms were discussed, including the importance of fluid management and medication adherence. We talked about the rationale for refilling the alpha-mykel alfuzosin and finasteride necessary to manage Benign Prostatic Hyperplasia symptoms. The patient has been advised to maintain hydration between 48 to 62 ounces daily, stopping fluid intake by 7 PM to minimize nocturia. Repeated urine analysis showed clear results, noting potential improvements in symptoms as time progresses since Prozac cessation. Medication non-availability concerns were addressed, encouraging prescription refills verification and alternative pharmacy options if needed. Plan We will continue managing Benign Prostatic Hyperplasia with medications like alfuzosin and ensure medication refills are acquired to help control urinary symptoms. Patients are guided on hydration practices, aiming to balance fluid intake with reduced nocturnal urination. Managing the previously prescribed Pendofilin availability concerns includes assessing other pharmacy options. The discontinuation of Prozac has caused temporary urinary difficulties but recommended cognitive behavioral therapy for OCD. Continued hydration is encouraged, with plans to reevaluate as symptoms adjust, especially considering existing hypothyroid conditions. Patient Instructions - Maintain daily fluid intake between 48 to 62 ounces. - Aim to stop fluid intake by 7 PM to reduce nighttime urination. - Follow up with the pharmacy regarding medication availability. - Continue with alfuzosin and vitamin E as prescribed. - Consult a pharmacy regarding Pendofilin availability; consider alternatives if necessary. - Monitor urinary symptoms and report any worsening or new symptoms. - Engage in cognitive behavioral therapy for OCD management. - Schedule a follow-up if instructed or if conditions worsen. Patient was informed and verbally consented to the use of an ambient scribe for clinic note documentation during this visit. 05/02/24--Ruben is here for follow-up. I have reviewed PSA results, 03/14/24--1.1 ng/mL. The patient is prescribed pentoxifylline and is taking edgu-iis-tupvryz vitamin-E for Peyronie's. He continues to take the alfuzosin and finasteride. The Rapaflo was not covered by his insurance. Bladder scan PVR is 57 mL. Will continue medications and monitor PSA. Follow-up in 6 months. 01/30/2024--Ruben is here for office cystoscopy. He was initially evaluated on 12/23/23 with complaints of weak urinary stream and hesitancy/straining, he is on alfuzosin and Proscar. He also had symptoms of urgency, other treatment options including sacral neuromodulation was discussed. He states that he has had urodynamics in the past and was unable to urinate with the catheter in place. He described curvature of penis. I prescribed vitamin E and pentoxifylline. Cystoscopy findings: Wwwr-db-ufrtvmeu trabeculations, evidence of prior bladder biopsy, regrowth of the prostate which is obstructive. I discussed treatment options to remove prostate tissue including GreenLight laser TURP may improve urinary symptoms of straining. We will trial Rapaflo to replace alfuzosin. The patient states he had a reaction to tamsulosin in the past with side effects of throat swelling. 12/23/2023--Ruben is a 73-year-old male who is here as a new patient evaluation. He complains of weak urinary stream and having to push to empty while urinating. He also complains that when he has an erection in the lower portion of the shaft there is an area that is flaccid. He does not describe a specific curvature of the penis. He is up about 2-3 times at night to urinate. He states he has been following with Urology for about 25 years. He has seen different urologists in the past. The most recent urologist is now [address] to and he has seeking a new urologist for his care. He has had several evaluations for his urinary symptoms in the past. Is currently on alfuzosin 10 mg daily and finasteride 5 mg daily. CoMorbidity - OCD, anxiety, back surgery. Urinalysis-leukocytes negative blood negative. Bladder scan PVR 39 mL. Prostate Exam: Smooth mild to moderately enlarged I have discussed further evaluation with office cystoscopy. I have discussed treatment options to include sacral neuromodulation with Test stim to be done initially to see if this may help with better voiding function. I will start him on vitamin E and pentoxifylline. Will continue PSA screening. [facility] Medical History BPH (benign prostatic hyperplasia) Psychosexual disorder Urinary retention Pain in both testicles Peyronie disease Lower urinary tract symptoms Nephrolithiasis Enlarged prostate with lower urinary tract symptoms (LUTS) History of hypothyroidism Surgical History History of total right knee replacement History of back surgery Family History Father No problems noted. Mother No problems noted. Social History Patient Tobacco Use Status: Never used Tobacco Current occupational status: retired Current occupation: right hand dominant Review of Systems Const All systems reviewed & are unremarkable except as noted in HPI and below Reports no additional complaints Eyes Reports no additional complaints ENT Reports no additional complaints Card Reports no additional complaints Resp Reports no additional complaints GI Reports no additional complaints Reports as per HPI Musc Reports no additional complaints Skin/Breast Reports system reviewed and no additional complaints, except as documented Neuro Reports no additional complaints Psych Reports no additional complaints Endo Reports no additional complaints Dante/Lymph Reports no additional complaints Aller/Immun Reports no additional complaints Office Procedures Post Void Residual Post Residual Void Post Void Residual (PVR): 37 [id number] Void Residual by ultrasound Results AMB Urinalysis, Automated UA Leukoctes 0 Rashard/uL Last Edit by Daniella Zambrano on 12/10/24 16:24 UA Nitrite Negative Last Edit by Daniella Zambrano on 12/10/24 16:24 UA Urobilinogen 3.5 mg/dL Last Edit by Daniella Zambrano on 12/10/24 16:24 UA Protein 0 mg/dL Last Edit by Daniella Zambrano on 12/10/24 16:24 UA pH 6.0 Last Edit by Daniella Zambrano on 12/10/24 16:24 UA Blood 0 Charles/uL Last Edit by Daniella Zambrano on 12/10/24 16:24 UA Specific [place] 1.005 Last Edit by Daniella Zambrano on 12/10/24 16:24 UA Ketone Negative Last Edit by Daniella Zambrano on 12/10/24 16:24 UA Bilirubin 0 mg/dL Last Edit by Daniella Zambrano on 12/10/24 16:24 UA Glucose 0 mg/dL Last Edit by Daniella Zambrano on 12/10/24 16:24 Results Reviewed Results Reviewed: Laboratory Last Values Urine pH (Auto) 6.0 12/10/24 16:22 Specific [place] (Auto) 1.005 12/10/24 16:22 Urine Protein (Auto) 0 mg/dL 12/10/24 16:22 Glucose (UA)(Auto) 0 mg/dL 12/10/24 16:22 Urine Ketones (Auto) Negative 12/10/24 16:22 Urine Blood (Auto) 0 Charles/uL 12/10/24 16:22 Urine Nitrite (Auto) Negative 12/10/24 16:22 Urine Bilirubin (Auto) 0 mg/dL 12/10/24 16:22 Urine Urobilinogen (Auto) 3.5 mg/dL 12/10/24 16:22 Leukocyte Esterase (Auto) 0 Rashard/uL 12/10/24 16:22 Assessment & Plan Assessment & Plan Orders: Orders AMB Urinalysis Automated Today Z13.9 - Encounter for screening, unspecified Medications: Refilled alfuzosin ER administer after the same meal each day 10 mg PO DAILY 90 tabs 3RF pentoxifylline ER 400 mg PO BID 180 tabs 3RF 90 days vitamin E (dl, acetate) 450 mg PO DAILY 90 caps 3RF 90 days finasteride 5 mg PO DAILY 90 tabs 3RF Coding CPT Codes Post Residual Void - PVR CPT Code: 59698-Xclm Void Residual by ultrasound ([id number])
--- OUTSIDE RECORDS SUMMARY | 2024-12-10 15:35 | XMS_ITS | Data Portability ---
Author Organization [place] [facility] Address [address] [place] [address] Care Team Providers Care Crm Coordinator Name Role Phone DESIREE MILLER Primary Care [...] Time Impingement syndrome of left shoulder region [id number] 04 Active 2022 Riaz Dupont MD 299 [facility] [address], [place], [address] , [place] [facility] 15:16:39 Problem Notes None recorded. Procedures Surgical History Date Name Laterality Status Provider Name and Address Organization Details Recorded Time Total knee arthroplasty completed Yas Fam [facility] 12/07/2022 13:03:05 Shoulder Surgery completed Yasheather Fam [facility] 12/07/2022 13:03:11 Hernia Repair completed Yas Fam [facility] 12/07/2022 13:03:17 cholecystectomy completed Yas Fam [facility] 12/07/2022 13:03:25 operation on prostate completed [facility] 12/07/2022 13:03:43 v[facility]ctomy completed [facility] 12/07/2022 13:03:53 Imaging Results None recorded. Procedure Notes None recorded. Medical Equipment None Reported. Allergies Allergen ID Allergen Name Allergen Category Reaction Reaction Severity Criticality Documentation Date Start Date Code Code System Note Provider Name and Address Organization Details Recorded Time 1006 Flomax medicatio n Not available Not available Not available 12/07/2022 02656 3 RxNorm Yas Fam null, [place] [facility] 3 13:01:45 1007 amoxicill in medicatio n Not available Not available Not available 12/07/2022 723 RxNorm Yas Fam null, [place] [facility] 3 13:01:53 1008 Augmentin medicatio n Not available Not available Not available 12/07/2022 34675 2 RxNorm Yas Fam null, [place] [facility] 3 13:01:59 1009 budesonid e medicatio n Not available Not available Not available 12/07/2022 85551 RxNorm Yas Fam null, [place] [facility] 3 13:02:07 1010 erythromy max medicatio n Not available Not available Not available 12/07/2022 4053 RxNorm Yas Fam null, [place] [facility] 3 13:02:15 1011 Non-stero idal anti-infl ammatory agent (product) medicatio n Not available Not available Not available 12/07/2022 03503 005 SNOMED Yas Sarwat null, [place] [facility] 3 13:02:21 1012 salicylat e medicatio n Not available Not available Not available 12/07/2022 9522 RxNorm Yas Fam null, [place] [facility] 3 13:02:33 1013 Substance with sulfonami de structure and antibacte rial mechanism of action (substanc e) medicatio n Not available Not available Not available 12/07/2022 45741 8003 SNOMED Yas Fam null, [place] [facility] 3 13:02:39 Medications Name Sig Start [...] Updated DateTime 12/07/2022 165.1 cm 23.3 kg/m2 33456.[address] [facility] 12/07/2022 13:07:57 Social History None recorded. Functional Status None recorded. Mental Status None recorded. Family History Nothing Reported. Medical History Condition Response Thyroid Problems Y Heart Disease Y Past Encounters Encounter ID Performer Location Encounter Start Date Encounter Closed Date Diagnosis/Indication Diagnosis SNOMED-CT Code Diagnosis ICD10 Code Diagnosis Note [id number] MD ARETHA Baptiste [facility] 299 [facility] [address] [place] [address] 12/07/2022 12:57:12 12/07/2022 13:26:06 Impingement syndrome of left shoulder region [id number] 43115 M75.42 [id number] MD ARETHA Singh [facility] 299 [facility] [address] [place] [address] 01/10/2023 12:54:42 01/12/2023 09:49:35 Aftercare [id number] Z51.89 Health Concerns Section Related Observation LastModified by Organization Detai ls LastModified Time None Recorded Concern Status LastModified by Organization Details LastModified Time None Recorded Advance Directives Directive None Recorded Payers Encounter Date Sequence Insurance Name Policy Number Policy Curry Covered Member ID Curry Member ID Guarantor Name 12/07/2022 2 [place] [id number] Ruben Evans [id number] Ruben Evans 12/07/2022 1 [place] Ruben Evans [id number] Ruben Evans 01/10/2023 2 [place] [id number] Ruben Evans [id number] Ruben Evans 01/10/2023 1 [place] Ruben Evans [id number] Ruben Evans Notes Date Note Type [...] above shoulder height. Riaz Dupont MD 299 [facility] [address], [place], [address], [place] [facility] 12/07/2022 15:18:23 01/10/2023 text/html Patient came in with knee pain. However he has seen Dr. Archer for possible revision knee replacement. He recently was seen in [place] by Dr. Ahuja within the last few [...] obtained from Liz Rushing. AJIT WANG PA-C [address] [place] [address] [address], [place], [address], [place] [facility] 01/12/2023 09:49:34
--- OUTSIDE RECORDS SUMMARY | 2024-12-10 15:35 | XMS_ITS | Encounter Summary ---
Author Organization [facility] Address [address] [place] [address] Care Team Providers Care Gold Burnisher Name Role Phone Kj Henry MD Primary Care Provider [phone] Jim Goodman MD Primary Care Provider + [phone] Kj Henry MD Unavailable Encounter Details Date Type Department Care Team (Late st Contact Info) Description 12/22/2016 Scanned Document [facility] 80 [facility] [address] [place] [address] Provider, Generic Social History Tobacco Use [...] on filedocumented in this encounter Care Teams Gold Burnisher Relationship Specialty Start Date End Date Kj Henry MD 98 [facility] [place] [address] PCP - General 11/24/16 09/21/17 Jim Goodman MD 85 [facility] [address] [place] [address] PCP - General 09/22/17 Kj Henry MD [address] [place] [address] 09/22/17 documented as of this encounter
--- OUTSIDE RECORDS SUMMARY | 2024-12-10 15:35 | XMS_ITS | Encounter Summary ---
Author Organization [facility] Address [address] [place] [address] Care Team Providers Care Nurse Anesthetist Name Role Phone Kj Henry MD Primary Care Provider [phone] Jim Goodman MD Primary Care Provider + [phone] Kj Henry MD Unavailable Encounter Details Date Type Department Care Team (Late st Contact Info) Description 11/29/2016 Scanned Document [address] [address] Provider, Generic Social History Tobacco [...] on filedocumented in this encounter Care Teams Nurse Anesthetist Relationship Specialty Start Date End Date Kj Henry MD 98 [facility] [place] [address] PCP - General 11/24/16 09/21/17 Jim Goodman MD [address] [address] PCP - General 09/22/17 Kj Henry MD [address] [place] [address] 09/22/17 documented as of this encounter
--- OUTSIDE RECORDS SUMMARY | 2024-12-10 15:35 | XMS_ITS | Clinical Summary ---
Author Organization [employer] Address [address] [place] [address] Care Team Providers Care Laborer Orchard Name Role Phone Lorna Masters NP Primary Care Provider [phone] Surgical History Surgery Date Site/Laterality Comments CHOLECYSTECTOMY PROCEDURE: HISTORICAL CHOLECYSTECTOMY TURP / TRANSURETHRAL INCISION / DRAINAGE PROSTATE PROCEDURE: HISTORICAL TURP UPPER GASTROINTESTINAL ENDOSCOPY 06/09/2016 PROCEDURE: [place] UPPER GI ENDOSCOPY PERFORMED; COMMENT: Dr. Long - normal bx taken CORONARY STENT PLACEMENT 2012 PROCEDURE: STENT, CORONARY, BRAN; COMMENT: [place] 10/2012 s/p stent LAD BACK SURGERY 2010 and 2011 PROCEDURE: HISTORICAL BACK SURGERY TOTAL KNEE ARTHROPLASTY 05/26/2018 Right PROCEDURE: [place] ARTHRP KNE CONDYLE&PLATU MEDIAL&LAT COMPARTMENTS; COMMENT: Dr. Dupont EYE SURGERY PROCEDURE: HISTORICAL EYE SURGERY; COMMENT: for ptosis via Dr. Parra HAND SURGERY Bilateral PROCEDURE: [place] UNLISTED PROCEDURE HANDS/FINGERS; COMMENT: LRTI COLONOSCOPY 03/30/2021 PROCEDURE: HISTORICAL COLONOSCOPY COLONOSCOPY 2015 PROCEDURE: HISTORICAL COLONOSCOPY Medical History Medical History Date Comments MAK (obstructive sleep apnea) 10/23/2015 DX :MAK (obstructive sleep apnea) Asthma 03/04/2017 DX:Asthma CAD (coronary artery disease ), [place] coronary artery 04/18/2018 DX:CAD (coronary artery dise ase), [place] coronary artery; COMMENT: [place] Dysphagia 04/11/2018 DX:Dysphagia Elevated lipase 03/03/2018 DX:Elevated lipa se Erosive gastritis 10/23/2015 DX:Erosive gas tritis 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 Hernandez Hemorrhoids 10/23/2015 DX:Hemorrhoids Hyperlipemia 03/03/2018 DX:Hyperlipemia Kidney stones 07/28/2016 DX:Kidney stones Liver cyst 11/28/2017 DX:Liver cyst Vitamin D deficiency 03/03/2018 DX:Vitamin D deficiency Anxiety 08/22/2018 DX:Anxiety Elevated serum creatinine DX:Isela vated serum creatinine Chronic back pain DX:Chronic justine k pain; COMMENT: f/u pain management at [facility] in [place] Dr. Keith Abnormality of urination DX:Abno rmality [...] Documents on File Type Date Recorded Patient New Media Strategist Expl anation Health Care Decision (hx) 01/31/2023 AD RAE DIRECTIVE Health Care Decision (hx) 01/31/2023 AD RAE DIRECTIVE Health Care Decision (hx) 01/31/2023 AD RAE DIRECTIVE Health Care Decision (hx) 01/31/2023 AD RAE DIRECTIVE Care Teams Laborer Orchard Relationship Specialty Start Date End Date Lorna Masters, REGISTERED NURSE MATERNAL CHILD [address] [place], [place] PCP - General 04/26/24
--- OUTSIDE RECORDS SUMMARY | 2024-12-10 15:35 | XMS_ITS | Clinical Summary ---
Author Organization [facility] Address [address] [place] [address] Care Team Providers Care Electrocardiograph Repairer Name Role Phone Pastor Kate MD Primary Care Provider [phone] Allergies Active Allergy Reactions Criticality Noted Date [...] age to complete this topic Care Teams Electrocardiograph Repairer Relationship Specialty Start Date End Date Pastor Kate MD PCP - General Internal Medicine 04/21/17
--- OUTSIDE RECORDS SUMMARY | 2024-12-10 15:35 | XMS_ITS | Encounter Summary ---
Author Organization [facility] Address [address] [place], [place] [id number] Care Team Providers Care Director Recreation Center Name Role Phone Kj Henry MD Primary Care Provider [phone] Jim Goodman MD Primary Care Provider + [phone] Kj Henry MD Unavailable Encounter Details Date Type Department Care Team (Late st Contact Info) Description 03/09/2017 Scanned Document [address] [address] Provider, Generic Social History Tobacco [...] on filedocumented in this encounter Care Teams Director Recreation Center Relationship Specialty Start Date End Date Kj Henry MD [address] [place] [address] [place] [address] PCP - General 11/24/16 09/21/17 Jim Goodman MD [address] [address] PCP - General 09/22/17 Kj Henry MD 98 [facility] [place] [address] 09/22/17 documented as of this encounter
--- OUTSIDE RECORDS SUMMARY | 2024-12-10 15:35 | XMS_ITS | Clinical Summary ---
Author Organization [facility] Address [address] [place] [address] Care Team Providers Care Farm Labor Contractor Name Role Phone Jim Goodman MD Primary Care Provider + [phone] Kj Henry MD Unavailable Allergies Active Allergy [...] age to complete this topic Care Teams Farm Labor Contractor Relationship Specialty Start Date End Date Jim Goodman MD [address] [place] [address] PCP - General 09/22/17 Kj Henry MD [address] [place] [address] 09/22/17
--- OUTSIDE RECORDS SUMMARY | 2024-12-10 15:35 | XMS_ITS | Encounter Summary ---
Author Organization [facility] Address [address] [place] [address] Care Team Providers Care Profile Trimmer Name Role Phone Jim Goodman MD Primary Care Provider [phone] Kj Henry MD Unavailable Encounter Details Date Type Department Care Team (Late st Contact Info) Description 05/21/2019 Scanned Document [facility] Colorectal Surgery [place] 85 [facility] [address] [place] [id number] Provider, MD Neha [address] [place] [address] Social History Tobacco Use Types Packs/Day Years [...] on filedocumented in this encounter Care Teams Profile Trimmer Relationship Specialty Start Date End Date Jim Goodman MD 85 [facility] [address] [place] [address] PCP - General 09/22/17 Kj Henry MD [address] [place] [address] [place] [address] 09/22/17 documented as of this encounter
--- OUTSIDE RECORDS SUMMARY | 2024-12-10 15:35 | XMS_ITS | Encounter Summary ---
Author Organization [facility] Address [address] [place] [address] Care Team Providers Care Fixture Fabricator Repairer Name Role Phone Jim Goodman MD Primary Care Provider [phone] Kj Henry MD Unavailable Encounter Details Date Type Department Care Team (Late st Contact Info) Description 10/06/2018 Scanned Document [facility] Colorectal Surgery [address] [place] [address] Provider, MD Neha [address] [place] [address] Social History Tobacco Use Types Packs/Day Years [...] on filedocumented in this encounter Care Teams Fixture Fabricator Repairer Relationship Specialty Start Date End Date Jim Goodman MD 85 [facility] [address] [place] [address] PCP - General 09/22/17 Kj Henry MD [address] [place] [address] [place] [address] 09/22/17 documented as of this encounter
--- OUTSIDE RECORDS SUMMARY | 2024-12-10 15:35 | XMS_ITS | Encounter Summary ---
Author Organization [facility] Address [address] [place] [address] Care Team Providers Care Pressing Machine Operator Name Role Phone Kj Henry MD Primary Care Provider [phone] Jim Goodman MD Primary Care Provider + [phone] Kj Henry MD Unavailable Encounter Details Date Type Department Care Team (Late st Contact Info) Description 05/31/2016 Scanned Document [address] [address] Provider, Generic Social History Tobacco [...] on filedocumented in this encounter Care Teams Pressing Machine Operator Relationship Specialty Start Date End Date Kj Henry MD [address] [place] [address] PCP - General 11/24/16 09/21/17 Jim Goodman MD [address] [address] PCP - General 09/22/17 Kj Henry MD [address] [place] [address] 09/22/17 documented as of this encounter
--- OUTSIDE RECORDS SUMMARY | 2024-12-10 15:35 | XMS_ITS | Clinical Summary ---
Author Organization [facility] Address [address] [place] [id number] Care Team Providers Care Zigzag Tunnel Elastic Operator Name Role Phone Pastor Kate MD Primary Care Provider [phone] Allergies No known active allergies Medications levothyroxine [...] age to complete this topic Care Teams Zigzag Tunnel Elastic Operator Relationship Specialty Start Date End Date Pastor Kate MD PCP - General Internal Medicine 11/27/11
--- OUTSIDE RECORDS SUMMARY | 2024-12-10 15:35 | XMS_ITS | Encounter Summary ---
Author Organization [facility] Address [address] [place] [address] Care Team Providers Care Fashion Consultant Selling Name Role Phone Kj Henry MD Primary Care Provider [phone] Jim Goodman MD Primary Care Provider + [phone] Kj Henry MD Unavailable Encounter Details Date Type Department Care Team (Late st Contact Info) Description 02/10/[address] [facility] [place] [address] Ariel Dey MD [address] [place] [address] Social History Tobacco Use Types Packs/Day Years [...] on filedocumented in this encounter Care Teams Fashion Consultant Selling Relationship Specialty Start Date End Date Kj Henry MD [address] [place] [address] PCP - General 11/24/16 09/21/17 Jim Goodman MD [address] [address] PCP - General 09/22/17 Kj Henry MD [address] [place] [address] 09/22/17 documented as of this encounter
== END 2024-12-10 14:27 | disposition home or self-care (01) ==
LOC: HO.HUSH 13:50
PROVIDERS: Visit Provider Urology
DX: Z13.9 Encounter for screening, unspecified (principal)

== ENCOUNTER → 2024-12-10 13:49 | Outpatient (BNVA) | payer MEDICARE, SELFPAY | PROVIDERS: Visit Provider Urology | DX: N40.1 Benign prostatic hyperplasia with lower urinary tract symptoms (principal); R35.1 Nocturia; R39.14 Feeling of incomplete bladder emptying; R35.0 Frequency of micturition; N52.9 Male erectile dysfunction, unspecified; N39.8 Other specified disorders of urinary system; N48.6 Induration penis plastica; Z79.899 Other long term (current) drug therapy | CPT/HCPCS: 51798; 81003; 99212 ==

== ENCOUNTER 2025-03-06 11:02 | Outpatient (AMB) | payer MEDICARE, SELFPAY ==
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
[2025-03-06 11:22] VITALS: BMI 23.8
--- OUTSIDE RECORDS SUMMARY | 2025-03-06 13:06 | XMS_ITS | Clinical Summary ---
Author Organization [facility] Address [address] [place] [address] Care Team Providers Care Foreign Exchange Trader Name Role Phone Pastor Kate MD Primary Care Provider [phone] Allergies Active Allergy Reactions Criticality Noted Date [...] ( season) 2024 08/17/2021, 11/15/2020 Influenza Vaccine (Season Ended) 2025 07/03/2021, 11/01/2019, 06/14/2017, Additional history exists RSV Adult > 60+ Yrs or (1 - 1-dose 75+ series) 2026 Pneumococcal Vaccine Completed 04/18/2019, 09/14/2017, 07/28/2016 Hepatitis B Vaccines Aged Out No long er eligible based on patient's age to complete this topic RSV Ped < 20 months Aged Out No longe r eligible based on patient's age to complete this topic Care Teams Foreign Exchange Trader Relationship Specialty Start Date End Date Pastor Kate MD PCP - General Internal Medicine 04/21/17
== END 2025-03-06 11:46 | disposition home or self-care (01) ==
LOC: HO.HOS 11:02
PROVIDERS: Visit Provider Orthopaedic Surgery
DX: M25.562 Pain in left knee (principal); M25.311 Other instability, right shoulder
CPT/HCPCS: 99213; G2211

== ENCOUNTER → 2025-03-06 11:02 | Outpatient (BNVA) | payer MEDICARE, SELFPAY | PROVIDERS: Visit Provider Orthopaedic Surgery | DX: M25.562 Pain in left knee (principal); M25.311 Other instability, right shoulder | CPT/HCPCS: 99212 ==